=== PATIENT | female | born 1990 | race Two or more races ===

== ENCOUNTER 2024-12-18 18:48 | Inpatient (IN) | payer OTHER, SELFPAY ==
[2024-12-18 13:09] VITALS: BP 114/72
[2024-12-18] MEDS: OMNIPAQUE 50 ML PO (14:26)
[2024-12-18 14:35] LABS: % Basophils 0.3 % (0-2); % Eosinophils 1.9 % (0-6); % Immature Granulocytes 0.3 % (0-0.5); % Lymphocytes 25.2 % (20.5-51.1); % Neutrophils 65.3 % (42.2-75.2); Absolute Eosinophils 0.1 10^3/uL (0-0.7); Absolute Lymphocytes 1.6 10^3/uL (1.2-3.4); Absolute Monocytes 0.4 10^3/uL (0.1-0.6); Absolute Neutrophils 4.1 10^3/uL (1.4-6.5); Hematocrit 39.4 % (37.0-47.0); Hemoglobin 13.6 g/dL (12.0-16.0); Mean Corp Hgb Conc. 34.5 g/dL (33.0-37.0); Mean Corpuscular Hgb 30.1 pg (27.0-31.0); Mean Corpuscular Volume 87.2 fL (81.0-99.0); Mean Platelet Volume 9.7 fL (7.4-10.4); Nucleated Red Blood Cells % 0 %; Platelet Count 238 10^3/uL (130-400); Red Blood Cell Count 4.52 10^6/uL (4.20-5.40); White Blood Cell Count 6.3 10^3/uL (4.8-10.8)
[2024-12-18 14:37] LABS: HCG, Urine Qualitative Screen Negative
[2024-12-18 14:45] LABS: Urine Albumin Negative (Neg - Trace); Urine Bilirubin Negative (Negative); Urine Character Clear (Clear); Urine Color Yellow; Urine Glucose Negative (Negative); Urine Ketone Negative (Negative); Urine Leukocyte 1+ (Negative); Urine Nitrite Negative (Negative); Urine Occult Blood Negative (Negative); Urine Specific Gravity 1.005 (<1.030); Urine Urobilinogen Negative (Neg - 1+)
[2024-12-18 14:48] LABS: ALT (SGPT) 12 U/L (0-35); AST (SGOT) 17 U/L (14-36); Albumin 3.9 g/dl (3.5-5.0); Alkaline Phosphatase 57 U/L (38-126); Blood Urea Nitrogen 6 mg/dl (7-17); Calcium 9.4 mg/dl (8.4-10.2); Carbon Dioxide 24 mmol/L (22-30); Chloride 107 mmol/L (98-107); Glucose 102 mg/dl (70-99); Lipase 93 U/L (23-300); Potassium 4.2 mmol/L (3.5-5.1); Sodium 139 mmol/L (135-145); Total Bilirubin 0.7 mg/dl (0.2-1.3); Total Protein 6.7 g/dl (6.3-8.2); eGFR > 60.00
[2024-12-18 15:07] LABS: Urine Red Blood Cell None Seen /HPF (0-2)
--- NOTE | 2024-12-18 15:39 | ED.GENMED ---
History of Present Illness
General
Chief Complaint: Abdominal Symptoms
Time Seen by Provider: 12/18/24 13:21
History of Present Illness
History of Present Illness:
34-year-old female with history of Crohn's disease presenting for lower abdominal pain and vomiting. Patient reports that she was recently in [place] on vacation. 2 days ago she abruptly started to have vomiting. The vomiting improved, however she
then started to have lower abdominal cramping, which has been worsening. She feels it in the lower abdomen, particular right lower quadrant. Denies urinary complaints. Denies fever. Denies chest pain or difficulty breathing. Denies any history
of abdominal surgeries in the past. Denies additional acute medical complaints
Past History
Past History
ED Past Medical History: None
Social History
Tobacco: Non-smoker
Personal:
Phy Exam
Physical Exam
Physical Exam:
General: Well-appearing, no clinical signs of dehydration, nontoxic and in no acute distress
HEENT: protecting airway
Neck: appears supple
CV: Normal heart rate, regular rhythm
Resp: No accessory muscle use, no increased work of breathing, lungs clear to auscultation bilaterally
Abd: Soft and non-distended, focal tenderness to the right lower quadrant and suprapubic abdomen without rebound or guarding
Extremities: No deformities, no swelling, no erythema
Neuro: alert, no focal neurologic deficit
: deferred
Rectal: deferred
Psych: Normal affect
Skin: Intact
Course
Orders/Labs/Results
Orders:
Orders
12/18/24 13:36
Iohexol [Omnipaque] See Protocol PO NOW STA
12/18/24 13:37
CT Abd/pel W Iv And Oral Contr Urgent
Comment:
Reason For Exam: RLQ pain, r/o appe
Test Result ONCE
12/18/24 14:22
Complete Blood Count/With Diff Urgent
Comprehensive Metabolic Panel Urgent
Lipase Urgent
12/18/24 14:23
HCG, Urine Qualitative Screen Urgent
Date Specimen was Collected: 12/18/24
Time Specimen was Collected: 14:13
Urinalysis Reflex To Culture Urgent
Date Specimen was Collected: 12/18/24
Time Specimen was Collected: 14:13
Urine Microscopic Reflex Cult Urgent
Urine Culture Urgent
ALMA Source: U
Specimen Description:
Date Specimen was Collected: 12/18/24
Time Specimen was Collected: 14:13
12/18/24 17:19
CefTRIAXone [Rocephin] 1,000 mg IV NOW STA
MetroNIDAZOLE 500 MG/100 ML [Flagyl 500 mg] 100 ml IV NOW
Abnormal Lab Results
12/18/24 12/18/24
14:22 14:23
BUN 6 L mg/dl
(7-17)
Glucose 102 H mg/dl
(70-99)
Leukocyte Esterase Rfl 1+ A
(Negative)
12/18/24 14:22
12/18/24 14:22
Vital Signs
Initial and Last Documented VS:
Initial Vital Signs
Temp Pulse Resp BP Pulse Ox
98.5 F 65 16 114/72 100
12/18/24 13:09 12/18/24 13:09 12/18/24 13:09 12/18/24 13:09 12/18/24 13:09
Last Documented Vital Signs
Temp Pulse Resp BP Pulse Ox
98.5 F 65 16 114/72 100
12/18/24 13:09 12/18/24 13:09 12/18/24 13:09 12/18/24 13:09 12/18/24 13:09
MDM/Problems Addressed
MDM/Problems Addressed:
34-year-old female with history of Crohn's disease presenting for lower abdominal cramping and pain. Vital signs on arrival are normal.
On exam patient is resting comfortably, no acute distress. Symptoms appear most consistent with travelers infection, however patient is not having any diarrhea. Patient is focally tender to the right lower quadrant, so appendicitis is certainly
consideration. Given BMI, will have patient drink oral contrast and plan for CT abdominal imaging. Will also send laboratory analysis, urinalysis, urine preg
17:20 -patient CT shows acute uncomplicated appendicitis. Did message surgery. Surgery aware.
18:20 -General Surgery feels that it could be patient's Crohn's disease, holding surgery at this time, recommending hospitalist admission and GI consultation
*Critical Care Note
Total Time (30-74mins, 75-104mins- exclusive of procedures): Not Applicable
ED Attending Note
-
Portions of this chart may have been created with voice recognition software.� Occasional wrong word or��sound alike� substitutions may have occurred due to the inherent limitations of voice recognition software.
Discharge Plan
Departure
Patient Disposition: Admit
Date of Disposition: 12/18/24
Time of Disposition: 18:23
Presentation/result/management discussed w/ accepting MD/DO: Hospitalist
Condition: Good
Discharge Problem:
Acute appendicitis
Prescriptions:
No Action
PNV b#95-ferrous fumarate-FA [] 1 EACH tablet
1 ea PO DAILY
calcium carbonate 600 MG tablet
600 mg PO DAILY
acetaminophen 325 MG tablet
650 mg PO Q4HPRN PRN (Reason: mild pain) 0RF
sennosides-docusate sodium 1 TABLET tablet
1 tab PO DAILYPRN PRN (Reason: constipation) 0RF
ibuprofen 600 MG tablet
400 mg PO Q4HPRN PRN (Reason: moderate pain/cramps) 0RF
Referrals:
Bailey Cui MD [Family Provider] -
Discharge Date and Time
Print Language: MACEDONIAN
--- NOTE | 2024-12-18 18:53 | HPS.HSE ---
Family Physician
-
Family Physician: Bailey Cui MD
Chief Complaint
-
abdominal pain
History of Present Illness
34-year-old female past medical history of Crohn's disease in remission on Entyvio for a year, presenting with lower abdominal pain and vomiting. She was recently in [place] on vacation. 2 days ago she abruptly started having vomiting. Vomiting
improved but then she started having lower abdominal cramping which is gotten worse. Pain is in the right lower quadrant. Denies urinary complaints. Denies fever. Denies chest pain shortness of breath. Denies any prior abdominal surgeries.
Denies constipation or diarrhea. Denies blood in the stool.
Patient follows with Dr. Abreu at [facility] for [facility].
No family history of any GI problems.
Denies smoking or alcohol use.
Medical History
Past Medical History
Past Medical History: Reports Other (Crohn's disease)
Past Surgical History: Reports None
Social History
Tobacco: Non-smoker
Alcohol: None
Drug: None
Family History
Family History: Not pertinent
Allergies / Home Medications
Allergies reflects when Allergies were last updated in [employer].
Home Medications with original date entered in [employer]
Allergy/Medication List:
Allergies
Allergy/AdvReac Type Severity Reaction Status Date / Time
latex Allergy Itching Verified 12/18/24 13:11
Home Medications
ibuprofen 200 mg tablet 400 mg PO DAILYPRN PRN mild pain 12/18/24
vedolizumab 300 mg intravenous solution (Entyvio) 300 mg IV Q8W 12/18/24
Review of Systems
-
History Source: Patient
A 12 point ROS was completed and negative except as noted: Yes
Constitutional: Reports No Symptoms
EENT: Reports No Symptoms
Respiratory: Reports No Symptoms
Cardiac: Reports No Symptoms
Abdomen/GI: Reports See HPI
: Reports No Symptoms
Musculoskeletal: Reports No Symptoms
Skin: Reports No Symptoms
Neurological: Reports No Symptoms
Endocrine: Reports No Symptoms
Hematologic/Lymphatic: Reports No Symptoms
Psych: Reports No Symptoms
Physical Exam
Vital Signs
Vital Signs
Temp Pulse Resp BP Pulse Ox
98.5 F 65 16 114/72 100
12/18/24 13:09 12/18/24 13:09 12/18/24 13:09 12/18/24 13:09 12/18/24 13:09
Physical Exam
General: Well Developed, Well Nourished and No Apparent Distress
HEENT: NormoCephalic, Moist mucous membranes and Atraumatic
Respiratory: Clear
Cardiac: S1/S2 and Regular Rhythm; No Murmur or Rub
GI: Soft, Non Distended, Normal Bowel Sounds and Tender (RLQ ); No Organomegaly
Rectal: Deferred by Provider
Musculoskeletal: No Clubbing, No Cyanosis and No Edema
Skin: No Rash
Neuro: Nonfocal/grossly intact
Laboratory Results
-
12/18/24 14:22
12/18/24 14:22
Laboratory Results
Total Bilirubin 0.7 mg/dl (0.2-1.3) 12/18/24 14:22
AST 17 U/L (14-36) 12/18/24 14:22
ALT 12 U/L (0-35) 12/18/24 14:22
Alkaline Phosphatase 57 U/L (38-126) 12/18/24 14:22
Lipase 93 U/L (23-300) 12/18/24 14:22
Data Reviewed
-
Lab Data: Labs Reviewed by me
Old Records: Reviewed
Impression/Plan
-
IMPRESSION:
PLAN:
# Acute appendicitis
- CT abdomen pelvis shows distended appendix, mild adjacent surrounding inflammatory soft tissue stranding, incidental prominent submucosal fat deposition in cecum and proximal ascending colon which is nonspecific associated intraluminal narrowing
which may be associated with IBD
- Sips of liquids, n.p.o
- IV fluids
- Zosyn
- General Surgery consulted, recommending GI consult for consideration of Crohn's disease
- Discussed with GI who wants general surgery evaluation first
# Crohn's disease
-In remission for a year on Entyvio
- CT scan shows incidental prominent submucosal fat deposition in cecum and proximal ascending colon which is nonspecific associated intraluminal narrowing which corresponds to patient's known Crohn's disease
- General Surgery to evaluate first to see if GI consult necessary
Full code
DVT prophylaxis�SCDs
N.p.o. past midnight
[2024-12-18] MEDS: FLAGYL 500 MG 100 IV (19:05)
[2024-12-18] MEDS: ROCEPHIN 1000 MG IV (19:06)
[2024-12-18 20:35] VITALS: BMI 20.3
[2024-12-18] MEDS: NSS 1000 IV (20:35)
[2024-12-18 20:48] VITALS: BP 108/61
[2024-12-18] MEDS: ZOSYN 50 IV (21:25)
[2024-12-18] MEDS: TORADOL 10 MG IV (21:27)
[2024-12-18 23:42] VITALS: BP 92/43
--- NOTE | 2024-12-19 02:17 | PTCARENOTE ---
20:25 pt rec'vd from ER, pt aaox3 able to ambulate to scale, WNL parents accompanied pt to room and left shortly after. IVF samia, pt assessed and oriented to unit .
[2024-12-19] MEDS: ZOSYN 50 IV ×4 (04:03→22:31)
--- NOTE | 2024-12-19 06:06 | CON.GI ---
Consultation
-
Date/Time Consultation Requested: 12/18/2024, 1900
Date/Time Consultation Performed: 12/20/2023, 0600
Requesting Provider: Dr. Lin Blackmon
Performing Provider: Dr. Jose Colmenares
Reason for Consultation: Hx of Crohn's Disease, RLQ Abd pain, c/f Appendicitis
Medical History
Chief Complaint / HPI
Chief Complaint: RLQ Abd Pain
History of Present Illness:
Ms. Montes is a 34 y.o female with past medical history significant for Crohn's disease (dx 10/2023, on Entyvio last dose 11/2024) who reported to the ED with vomiting and right lower quadrant abdominal pain. CT imaging was concerning for acute
appendicitis along with submucosal fat deposition within the right colon. GI has been consulted for further evaluation and management.
Patient states her symptoms about two-three days ago on with nausea and vomiting. She recently was in [place] away for vacation and attributed her symptoms to a GI bug/illness. Denies any other sick contacts or other diarrhea / looser
stools. She additionally endorsed having night sweats along with chills but denies any fevers. Had multiple episodes of NBNB emesis without any other abdominal pain or epigastric discomfort. Eventually, her nausea/vomiting subsided but then started
to develop right lower quadrant abdominal pain which became progressively worse prompting her to come to the ED. Otherwise, she denies any other diarrhea, nocturnal bowel movements, rectal urgency, tenesmus, mucus or bloody stools. In regards to her
Crohn's disease, she follows with Dr. Michael Abreu at [facility] for her Crohn's disease. She reports being diagnosed around 10/2023 when she underwent both an EGD/Colonoscopy as she reports having significant upper abdominal discomfort,
post-prandial epigastric discomfort along with fatigue and irregular bowel habits but denies any chronic diarrhea. Unfortunately, have no records but reports her EGD was normal and her colonoscopy revealed inflammation in her colon. She was started
on Entyvio around 12/2024 with significant improvement with her last flare around the fall (one week of upper abd discomfort and fatigue). She has never had similar symptoms like this in the past and denies any symptoms that are typical for
her Crohn's disease. Denies any unintentional weight loss. Otherwise, she denies any other significant NSAIDs. Her last dose of Entyvio was on December 03 earlier this month and notes an upcoming colonoscopy in January of this year to reassess her
disease activity. She denies any other known complications from her Crohn's disease or other EIM.
In the ED, patient was afebrile and HD-stable without compensatory tachycardia. Labs were grossly unremarkable including normal CMP with albumin 3.9 and CBC without leukocytosis with WBC 6.[address] Abd/pelvis 12/18 revealed acute,
uncomplicated appendicitis w/out perforation or abscess along with incidental, nonspecific prominent submucosal fat deposition in the cecum and proximal AC with associated luminal narrowing. Patient received IVF, IV Zosyn and admitted to medicine
for further management.
Past Medical History
Past Medical History: Other (Colonic Crohn's disease)
Past Surgical History: None
Social History
Tobacco: Non-Smoker
Alcohol: None
Drug: None
Family History
Family History: Reviewed & Not Pertinent
Allergies / Home Medications
Allergy/AdvReac Type Severity Reaction Status Date / Time
latex Allergy Itching Verified 12/18/24 13:11
�Medication �Instructions �Recorded
ibuprofen 200 mg tablet 400 mg PO DAILYPRN PRN mild pain 12/18/24
vedolizumab 300 mg intravenous 300 mg IV Q8W 12/18/24
solution (Entyvio)
Review of Systems
-
All other systems: A 12 pt ROS was Negative except as stated above in HPI
Vital Signs
Temp Pulse Resp BP Pulse Ox
98.3 F 63 14 92/43 97
12/18/24 23:42 12/18/24 23:42 12/18/24 23:42 12/18/24 23:42 12/18/24 23:42
Physical Exam
Exam
General: Well Developed, Well Nourished, No Apparent Distress and Comfortable
HEENT: Normocephalic, Anicteric and Moist Mucous Membranes
Respiratory: Other (Normal WOB on room air)
GI: Soft, Non Distended and Tender (Mild to moderate TTP in RLQ w/out involuntary guarding or rebound tenderness)
Skin: Warm
Neuro: AO x 3
Psych: Calm
Results
WBC 6.3 10^3/uL (4.8-10.8) 12/18/24 14:22
Hgb 13.6 g/dL (12.0-16.0) 12/18/24 14:22
Hct 39.4 % (37.0-47.0) 12/18/24 14:22
MCV 87.2 fL (81.0-99.0) 12/18/24 14:22
Plt Count 238 10^3/uL (130-400) 12/18/24 14:22
Absolute Neuts (auto) 4.1 10^3/uL (1.4-6.5) 12/18/24 14:22
Sodium 139 mmol/L (135-145) 12/18/24 14:22
Potassium 4.2 mmol/L (3.5-5.1) 12/18/24 14:22
Chloride 107 mmol/L (98-107) 12/18/24 14:22
Carbon Dioxide 24 mmol/L (22-30) 12/18/24 14:22
BUN 6 mg/dl (7-17) L 12/18/24 14:22
Creatinine 0.7 mg/dL (0.6-1.0) 12/18/24 14:22
Calcium 9.4 mg/dl (8.4-10.2) 12/18/24 14:22
Total Bilirubin 0.7 mg/dl (0.2-1.3) 12/18/24 14:22
AST 17 U/L (14-36) 12/18/24 14:22
ALT 12 U/L (0-35) 12/18/24 14:22
Alkaline Phosphatase 57 U/L (38-126) 12/18/24 14:22
Lipase 93 U/L (23-300) 12/18/24 14:22
Diagnostic Image Results: As noted in HPI
Prior GI Procedures: Last EGD/Colon back on 10/2023, no records available for review
Assessment / Plan
-
Ms. Montes is a 34 y.o female with past medical history significant for ileocolonic Crohn's disease (dx 10/2023, on Entyvio last dose 11/2024) who reported to the ED with vomiting and right lower quadrant abdominal pain. CT imaging was concerning for
acute appendicitis along with submucosal fat deposition within the right colon. GI has been consulted for further evaluation and management.
#RLQ Abd Pain
#Nausea/Vomiting
#Chills #Night Sweats
#CT Imaging C/f Acute Appendicitis
#Hx of Ileocolonic Crohn's Disease (dx 10/2023, on Entyvio last dose 11/2024)
Impression: Patient presenting with nausea/vomiting along with chills and night sweats after recently traveling to [place] and progressive worsening right lower quadrant abdominal pain over the past 2-[address] imaging concerning for acute,
uncomplicated appendicitis. Additionally, there was incidental, nonspecific prominent submucosal fat deposition within the cecum and proximal ascending colon with associated luminal narrowing. Patient's medical history significant for ileocolonic
Crohn's disease which she reports has been fairly well-controlled on Entyvio (no records) and denies any recent flares. She denies any prior similar symptoms in the past and notes her usual Crohn's symptoms have usually been upper abdominal pain,
postprandial dyspepsia, fatigue, along with irregular bowel movements. She denies any symptoms that are in keeping with her usual Crohn's symptoms and specifically denies any bloody stools, diarrhea, nocturnal bowel habits, irregular BMs, rectal
urgency, tenesmus or other symptoms in keeping her CD. In regards to her submucosal fat deposition within her right colon, this can often be found in patients with IBD and does not necessarily indicate active inflammation rather than further
supporting chronic inflammation. I personally reviewed the CT imaging last evening and do not appreciate any significant colitis or ileitis upon review. Although her symptoms are atypical for classic appendicitis as she is without any fevers or
leukocytosis, she does endorse previous chills/night sweats and her appendix does appear to be inflamed and dilated on her CT imaging . Etiology of her symptoms seems most consistent with atypical appendicitis versus pseudo-appendicitis from an
infectious process (i.e. Yersinia) given her travel history versus her underlying IBD/Crohn's disease but again seems less likely given her history and her symptomatology. For now, I would continue IV antibiotic therapy along with trending her
inflammatory markers although this may be be confounded in the setting of her appendicitis. Would be prudent to also check stool studies to rule out any other infectious process as well given her recent travel to [place]. I would defer starting any
steroids at this time and agree with obtaining surgical consultation for further evaluation given her CT imaging concerning for appendicitis.
Recommendations:
- Keep NPO pending surgery evaluation
- Check stool studies- stool culture, Yersinia antigen testing, stool ova & parasites, C Diff
- Obtain CRP, trend q 48 hrs
- Continue IV antibiotics
- Would defer starting IV steroids at this time
- Recommend general surgery consult for further recommendations given concern for appendicitis
- Will obtain OSH medical records regarding her prior EGD/Colonoscopy and previous CT imaging which would be helpful for comparison
- I will reach out to her Pool Nurse as well (Dr. Michael Abreu) tomorrow on 12/20 as well
- Strict avoidance of all NSAIDs
- Chemical VTE ppx given patient's IBD hx while inpatient
- Rest of care per primary team
Discussed with patient and primary internal medicine team. GI team will continue to follow.
Data Reviewed
-
Radiology: Image Personally Visualized and interpreted and Report Reviewed by me
CT Scan: Image Personally Visualized and interpreted and Report Reviewed by me
Old Records: Requested and Reviewed
-
-
Thank you for consultation and allowing me to participate in the patient's care. Please call the associate professor of education GI physician during the after hours with any questions or concerns.
[2024-12-19 07:32] VITALS: BP 111/69
[2024-12-19] MEDS: NSS 1000 IV ×2 (07:51→19:37)
[2024-12-19 07:52] LABS: % Basophils 0.7 % (0-2); % Immature Granulocytes 0.3 % (0-0.5); % Lymphocytes 34.3 % (20.5-51.1); % Monocytes 8.3 % (1.7-9.3); % Neutrophils 52.4 % (42.2-75.2); Absolute Eosinophils 0.2 10^3/uL (0-0.7); Absolute Monocytes 0.5 10^3/uL (0.1-0.6); Absolute Neutrophils 3.1 10^3/uL (1.4-6.5); Hematocrit 34.2 % (37.0-47.0); Hemoglobin 11.5 g/dL (12.0-16.0); Mean Corp Hgb Conc. 33.6 g/dL (33.0-37.0); Mean Corpuscular Hgb 29.6 pg (27.0-31.0); Mean Corpuscular Volume 88.1 fL (81.0-99.0); Mean Platelet Volume 10.1 fL (7.4-10.4); Nucleated Red Blood Cells % 0 %; Platelet Count 211 10^3/uL (130-400); Red Blood Cell Count 3.88 10^6/uL (4.20-5.40); Red Cell Dist. Width 12.9 % (11.5-14.5); White Blood Cell Count 5.8 10^3/uL (4.8-10.8)
[2024-12-19] MEDS: TORADOL 10 MG IV (07:54)
[2024-12-19 08:07] LABS: ALT (SGPT) < 10 U/L (0-35); AST (SGOT) 15 U/L (14-36); Albumin 3.5 g/dl (3.5-5.0); Alkaline Phosphatase 55 U/L (38-126); Blood Urea Nitrogen 7 mg/dl (7-17); Calcium 8.6 mg/dl (8.4-10.2); Carbon Dioxide 22 mmol/L (22-30); Chloride 110 mmol/L (98-107); Estimated Creatinine Clearance 88 ml/min; Glucose 95 mg/dl (70-99); Potassium 4.2 mmol/L (3.5-5.1); Sodium 141 mmol/L (135-145); Total Bilirubin 0.8 mg/dl (0.2-1.3); Total Protein 5.8 g/dl (6.3-8.2); eGFR > 60.00
--- NOTE | 2024-12-19 08:56 | W.PN.HOSP.TC ---
Today's Communication/Plan
-
see plan
Assessment / Plan
Assessment / Plan
CT A/P
IMPRESSION:
Acute appendicitis. No perforation or abscess.
Incidental prominent submucosal fat deposition in the cecum and proximal ascending colon, which is nonspecific. This appears to be associated with luminal narrowing. Such findings may be associated with inflammatory bowel disease in the proper
clinical setting.
Fibroid uterus.
# Acute appendicitis
- CT abdomen pelvis shows distended appendix with surrounding inflammatory soft tissue stranding; also shows prominent submucosal fat deposition in setting of known Crohn's
- Sips of liquids, n.p.o
- IV fluids
- Zosyn
- appreciate surgery and GI evals - follow up further recommendations
- Dr. Larose will update patient's [facility] Expert, Dr. Abreu
Full code
DVT prophylaxis�SCDs (start pharm if no plans for surgery)
Anticipated Discharge: 24 - 48 hours
Subjective/Interval History
-
Date of Service: December 19, 2024
continues to have RLQ pain
Objective Data
-
Labs:
Laboratory Results
12/19/24
05:56
WBC 5.8
Hgb 11.5 L
Hct 34.2 L
Plt Count 211
Sodium 141
Potassium 4.2
Chloride 110 H
Carbon Dioxide 22
BUN 7
Creatinine 0.8
Glucose 95
Calcium 8.6
Total Bilirubin 0.8
AST 15
ALT < 10
Alkaline Phosphatase 55
Vital Signs:
Vital Signs
Temp Pulse Resp BP Pulse Ox
97.9 F 65 16 111/69 99
12/19/24 07:32 12/19/24 07:32 12/19/24 07:32 12/19/24 07:32 12/19/24 07:32
I&O
12/18/24 12/19/24 12/20/24
06:59 06:59 06:59
Intake Total 0 / 0
Balance 0 / 0
Review of Systems
-
History Source: Patient
All other systems: Reviewed and negative
Physical Exam
-
General: No Apparent Distress
HEENT: PERRLA
Respiratory: Clear to Auscultation; Negative Wheezes
Cardiac: Regular Rhythm and S1/S2
GI: Other (tenderness RLQ )
Musculoskeletal: No Edema
Skin: Warm and Dry; Negative Rash
Neuro: AO x 3
Psych: Calm
Data Reviewed
-
Diagnostic Radiology: Report Reviewed by me
Labs: Labs Reviewed by me
--- NOTE | 2024-12-19 10:10 | CM ---
Reviewed the chart notes and spoke with the patient at the bedside. Patient resides with her spouse in a two story home with two steps to enter. The patient reports no DME or SNF in the past, but did have VN. Agency name unknown. The patient
confirmed her pharmacy of choice is [facility]. CM continues to be available to patient/family and is monitoring medical plan for needs at discharge.
Plan: Discharge plans will depend on the patient's progress.
--- NOTE | 2024-12-19 11:01 | CON.GS ---
Consultation
-
Date/Time Consultation Performed: 12/19/24 0923
Medical History
-
Chief Complaint: RLQ pain
History of Present Illness:
Ms Montes is a 34 yo female with a h/o Crohn's disease on Entyvio therapy who recently returned from a vacation in [place] and presents with RLQ pain for the past 2-3 days with associated loss of appetite. She had one episode of vomiting at date of
onset but denies nausea or vomiting since. She denies new symptoms of diarrhea. She denies fevers or chills. On exam, her abdomen is soft, non-distended with mild to moderate tenderness to the RLQ.
Past Medical History
Past Medical History: Other (Crohn's disease on biologic)
Past Surgical History: None
Social History
Tobacco: Non-Smoker
Alcohol: None
Personal:
Living: With Family
Employment: Employed
Family History
Family History: Reviewed & Not Pertinent
Allergies / Home Medications
Allergy/AdvReac Type Severity Reaction Status Date / Time
latex Allergy Itching Verified 12/18/24 13:11
�Medication �Instructions �Recorded �Confirmed �Type
ibuprofen 200 mg tablet 400 mg PO DAILYPRN PRN mild pain 12/18/24 12/18/24 History
vedolizumab 300 mg intravenous 300 mg IV Q8W Gastrointestinal 12/18/24 12/19/24 History
solution (Entyvio) Agent,
Review of Systems
-
History Source: Patient and Family
All other systems: Negative unless noted
A 10 point review of systems was completed, and was negative except as per HPI.
Physical Exam
Vital Signs
Temp Pulse Resp BP Pulse Ox
97.9 F 65 16 111/69 99
12/19/24 07:32 12/19/24 07:32 12/19/24 07:32 12/19/24 07:32 12/19/24 07:32
12/18/24 12/19/24 12/20/24
06:59 06:59 06:59
Actual Weight 56.897 kg
Body Mass Index (BMI) 20.3
Lab Results
12/19/24 05:56
12/19/24 05:56
WBC 5.8 10^3/uL (4.8-10.8) 12/19/24 05:56
Hgb 11.5 g/dL (12.0-16.0) L 12/19/24 05:56
Hct 34.2 % (37.0-47.0) L 12/19/24 05:56
Plt Count 211 10^3/uL (130-400) 12/19/24 05:56
Abs Immat Gran (auto) 0.0 10^3/uL (0-0.05) 12/19/24 05:56
Neutrophils % 52.4 % (42.2-75.2) 12/19/24 05:56
Physical Exam
General: Well Developed and Well Nourished
HEENT: Moist Mucous Membranes
Respiratory: Non Labored Respirations
GI: Soft, Non Distended and Tender (rlq)
Neuro: Awake, Alert and AO x 3
Psych: Calm
Data Reviewed
-
CT Scan: Image Personally Visualized and interpreted, Report Reviewed by me, Discussed with Physician, Discussed with Patient and Discussed with Family
Labs: Labs Reviewed by me, Discussed with Physician, Discussed with Patient and Discussed with Family
Old Records: Reviewed
Assessment / Plan
-
34 yo female with a h/o Crohn's disease presenting with 2-3 days of RLQ pain beginning as she was travelling back to the [place] from [place]. CT imaging reviewed with inflammatory changes noted to the TI/Cecum in keeping with her history of IBD with
distention of the appendix, no perforation or appendicolith visualized but with some adjacent/surrounding inflammatory soft tissue stranding. Possible appendicitis vs Crohn's flare. Afebrile with normal WBC. Reviewed operative options which would
include appendectomy with high likelihood of also needing ileocecectomy as well if surgery were to be pursued given Crohn's history and surrounding inflammation noted on CT vs medical management with antibiotics, bowel rest and IBD management.
Patient opting for medical management at this time.
Gastroenterology following as well and case discussed with Dr. Colmenares as well as Dr. Rubin patient's hospitalist.
--Ok for clears for comfort
--Continue ABX
--Trend labs/exams
--Analgesics prn
--Will obtain records from her IBD specialist Dr. Abreu tomorrow
--- NOTE | 2024-12-19 12:18 | W.PN.UPDATE ---
Update Note
Progress Note Update
Given no surgery today, will order one dose of Lovenox subQ for DVT PPx (patient higher risk with hx IBD). Further dosing to be re-assessed tomorrow.
[2024-12-19 14:02] VITALS: BP 114/61
[2024-12-19 23:25] VITALS: BP 112/63
[2024-12-20] MEDS: ZOSYN 50 IV ×3 (04:39→15:42)
--- NOTE | 2024-12-20 05:53 | W.PN.GI.CBS2 ---
Today's Communication / Plan
-
Improving on IV abx, may ADAT to low-fiber, low-residue as tolerated. Favor ongoing monitoring for additional 24 hrs while on solids. CRS following, no plans for surgery at this time. See rest of care as outlined below.
Assessment / Plan
-
Ms. Montes is a 34 y.o female with past medical history significant for ileocolonic Crohn's disease (dx 10/2023, on Entyvio last dose 11/2024) who reported to the ED with vomiting and right lower quadrant abdominal pain. CT imaging was concerning for
acute appendicitis along with submucosal fat deposition within the right colon. GI has been consulted for further evaluation and management.
#RLQ Abd Pain
#Nausea/Vomiting
#Chills #Night Sweats
#CT Imaging C/f Acute Appendicitis
#Hx of Ileocolonic Crohn's Disease (dx 10/2023, on Entyvio last dose 11/2024)
Impression: Patient presenting with nausea/vomiting along with chills and night sweats after recently traveling to [place] and progressive worsening right lower quadrant abdominal pain over the past 2-[address] imaging concerning for acute,
uncomplicated appendicitis. Additionally, there was incidental, nonspecific prominent submucosal fat deposition within the cecum and proximal ascending colon with associated luminal narrowing. Patient's medical history significant for ileocolonic
Crohn's disease which she reports has been fairly well-controlled on Entyvio (no records) and denies any recent flares. She denies any prior similar symptoms in the past and notes her usual Crohn's symptoms have usually been upper abdominal pain,
postprandial dyspepsia, fatigue, along with irregular bowel movements. She denies any symptoms that are in keeping with her usual Crohn's symptoms and specifically denies any bloody stools, diarrhea, nocturnal bowel habits, irregular BMs, rectal
urgency, tenesmus or other symptoms in keeping her CD. In regards to her submucosal fat deposition within her right colon, this can often be found in patients with IBD and does not necessarily indicate active inflammation rather than further
supporting chronic inflammation. I personally reviewed the CT imaging last evening and do not appreciate any significant colitis or ileitis upon review. Although her symptoms are atypical for classic appendicitis as she is without any fevers or
leukocytosis, she does endorse previous chills/night sweats and her appendix does appear to be inflamed and dilated on her CT imaging . Etiology of her symptoms seems most consistent with atypical appendicitis versus pseudo-appendicitis from an
infectious process (i.e. Yersinia) given her travel history versus her underlying IBD/Crohn's disease but again seems less likely given her history and her symptomatology. For now, I would continue IV antibiotic therapy along with trending her
inflammatory markers although this may be be confounded in the setting of her appendicitis. Would be prudent to also check stool studies to rule out any other infectious process as well given her recent travel to [place]. I would defer starting any
steroids at this time and agree with obtaining surgical consultation for further evaluation given her CT imaging concerning for appendicitis.
Cryptosporidium/giardia antigen stool testing (-), C Diff toxin (-), pending stool culture and Yersinia
Recommendations:
- Tolerating CLD, may advance to low-fiber, low-residue diet as tolerated if no plans for surgery
- Follow-up rest of stool studies including Yersinia
- CRP pending, trend q 48 hrs
- Continue IV Zosyn while inpatient
- Would still defer starting IV steroids at this time as without any symptoms to suggest active CD or flare of her Crohn's
- Surgery following, no plans for surgery at this time as patient hesitant to proceed with surgery given her Crohn's disease and c/f possible ileocolic resection in discussion with CRS
- Pending review of OSH medical records regarding her prior EGD/Colonoscopy and previous CT imaging which would be helpful for comparison
- Will attempt to reach out to her primary Leather Case Finisher as well (Dr. Michael Abreu)
- Strict avoidance of all NSAIDs
- Chemical VTE ppx given patient's IBD hx while inpatient
- Rest of care per primary team
Discussed with patient and CRS, Dr. Otero, this AM. GI team will continue to follow.
Subjective
Subjective
Date of Service: December 20, 2024
- No acute events overnight, remains afebrile
- Stool cultures pending
Feeling well, reports improving RLQ abdominal pain. Denies any fevers, chills or night sweats. Tolerated CLD without any difficulty. No nausea or vomiting. Does note mild menstrual cramps secondary to her menstrual cycle.
Objective
Data Reviewed
Laboratory Data:
Laboratory Results
Total Bilirubin 0.8 mg/dl (0.2-1.3) 12/19/24 05:56
AST 15 U/L (14-36) 12/19/24 05:56
ALT < 10 U/L (0-35) 12/19/24 05:56
Alkaline Phosphatase 55 U/L (38-126) 12/19/24 05:56
Lipase 93 U/L (23-300) 12/18/24 14:22
Vital Signs and I&O:
Vital Signs
Temp Pulse Resp BP Pulse Ox
99.1 F 65 16 112/63 99
12/19/24 23:25 12/19/24 23:25 12/19/24 23:25 12/19/24 23:25 12/19/24 23:25
I&O
12/18/24 12/19/24 12/20/24
06:59 06:59 06:59
Intake Total 0 / 0 500 / 500
Balance 0 / 0 500 / 500
Physical Exam
Physical Exam
HEENT: Anicteric and Moist mucous membranes
Pulmonary: Clear
GI: Soft, Non Distended and Tender (Mild TTP in RLQ, no rebound tenderness or involuntary guarding)
Extremities: No Edema
Neuro: Non Focal
[2024-12-20] MEDS: NSS 1000 IV (06:04)
[2024-12-20 07:14] LABS: Hematocrit 33.2 % (37.0-47.0); Hemoglobin 11.2 g/dL (12.0-16.0); Mean Corp Hgb Conc. 33.7 g/dL (33.0-37.0); Mean Corpuscular Hgb 29.5 pg (27.0-31.0); Mean Corpuscular Volume 87.4 fL (81.0-99.0); Platelet Count 203 10^3/uL (130-400); Red Cell Dist. Width 12.8 % (11.5-14.5); White Blood Cell Count 4.2 10^3/uL (4.8-10.8)
[2024-12-20 07:25] VITALS: BP 119/68
[2024-12-20 07:31] LABS: Blood Urea Nitrogen 5 mg/dl (7-17); Calcium 8.4 mg/dl (8.4-10.2); Carbon Dioxide 22 mmol/L (22-30); Chloride 109 mmol/L (98-107); Estimated Creatinine Clearance 88 ml/min; Glucose 97 mg/dl (70-99); Sodium 139 mmol/L (135-145); eGFR > 60.00
--- NOTE | 2024-12-20 09:09 | W.PN.CRS1 ---
Today's Communication / Plan
-
no plans for surgery
low residue diet
Assessment/Plan
-
34 yo female with a h/o Crohn's disease presenting with 2-3 days of RLQ pain beginning as she was travelling back to the from [place]. CT imaging reviewed with inflammatory changes noted to the TI/Cecum in keeping with her history of IBD with
distention of the appendix, no perforation or appendicolith visualized but with some adjacent/surrounding inflammatory soft tissue stranding. Possible appendicitis vs Crohn's flare. Afebrile with normal WBC. Reviewed operative options which would
include appendectomy with high likelihood of also needing ileocecectomy as well if surgery were to be pursued given Crohn's history and surrounding inflammation noted on CT vs medical management with antibiotics, bowel rest and IBD management.
Patient opting for medical management at this time.
--Advanced to low residue diet. Monitor for 24 hours per GI.
--Continue ABX
--Trend labs/exams
--Analgesics prn
--No plans for surgery at this time
--D/C per primary team
Subjective Data
Subjective Data
Date of Service: December 20, 2024
Patient is feeling better today. She is still opting for medical management. She has no nausea or vomiting. She had a bowel movement yesterday.
Objective Data
-
Vital Signs
Temp Pulse Resp BP Pulse Ox
98.1 F 60 16 119/68 98
12/20/24 07:25 12/20/24 07:25 12/20/24 07:25 12/20/24 07:25 12/20/24 07:25
Intake & Output
12/19/24 12/20/24 12/21/24
06:59 06:59 06:59
Intake Total 0 / 0 980 / 980
Balance 0 / 0 980 / 980
Intake:
Oral fluids 0 / 0 980 / 980
Other:
Number of approximated MODERATE 2 2
amounts of urine
Lab Results
12/20/24 06:22
12/20/24 06:22
Physical Exam
-
General: No Acute Distress and AOx3
Abdomen: Soft, Non Distended and Tender (RLQ - mild)
Skin: Warm and Dry
--- NOTE | 2024-12-20 09:22 | CM ---
Reviewed the chart notes. Diet advanced to low residue. No plans for surgery. Medical management. CM continues to be available to patient/family and is monitoring medical plan for needs at discharge.
Plan: Discharge to home when medically stable. No anticipated needs identified at this time.
--- NOTE | 2024-12-20 13:17 | W.PN.HOSP.TC ---
Addendum entered and electronically signed by Sage Esteves MD 12/21/24 16:47:
[id number]
Original Note:
Today's Communication/Plan
-
DC on augmentin for additional 10 days
F/u CBC in 1 week
Fi/ GI, CRS outpt
Assessment / Plan
Assessment / Plan
CT A/P
IMPRESSION:
Acute appendicitis. No perforation or abscess.
Incidental prominent submucosal fat deposition in the cecum and proximal ascending colon, which is nonspecific. This appears to be associated with luminal narrowing. Such findings may be associated with inflammatory bowel disease in the proper
clinical setting.
Fibroid uterus.
# Acute appendicitis
- CT abdomen pelvis shows distended appendix with surrounding inflammatory soft tissue stranding; also shows prominent submucosal fat deposition in setting of known Crohn's
- At this time, patient opting for conservative management v surgery due to risk of ileocecectomy. Please see CRS note for further details on conversation/differentials/decisions .
- Adv to LRD and if tolerating today, can be dced; confirmed with GI
- Augmentin upon DC for additional 10 days
- F/u closely with GI outpatient
-S/p IVF and zosyn
- appreciate surgery and GI evals
Full code
DVT prophylaxis�SCDs (start pharm if no plans for surgery)
More than 30 minutes spent in discharge including
Final examination of the patient
Summarizing hospital stay
Instructions for continuing care to all relevant caregivers
Preparation of discharge records, prescriptions, and referral forms
Total time spent (in minutes): 37
Anticipated Discharge: Today
Subjective/Interval History
-
Date of Service: December 20, 2024
no acute events, tolerating LRD this am
Objective Data
-
Labs:
Laboratory Results
12/20/24
06:22
WBC 4.2 L
Hgb 11.2 L
Hct 33.2 L
Plt Count 203
Sodium 139
Potassium 4.0
Chloride 109 H
Carbon Dioxide 22
BUN 5 L
Creatinine 0.8
Glucose 97
Calcium 8.4
Vital Signs:
Vital Signs
Temp Pulse Resp BP Pulse Ox
98.1 F 60 16 119/68 98
12/20/24 07:25 12/20/24 07:25 12/20/24 07:25 12/20/24 07:25 12/20/24 07:25
I&O
12/19/24 12/20/24 12/21/24
06:59 06:59 06:59
Intake Total 0 / 0 980 / 980
Balance 0 / 0 980 / 980
Review of Systems
-
History Source: Patient
All other systems: Not reviewed unless documented
Physical Exam
-
General: No Apparent Distress
HEENT: PERRLA
Respiratory: Clear to Auscultation; Negative Wheezes
Cardiac: Regular Rhythm and S1/S2
GI: Nontender
Musculoskeletal: No Edema
Skin: Warm and Dry; Negative Rash
Neuro: AO x 3
Psych: Calm
Data Reviewed
-
CT Scan: Report Reviewed by me
Labs: Labs Reviewed by me
--- NOTE | 2024-12-20 13:23 | W.DS.TRANS ---
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
-
Discharge Instructions:
Discharge Diagnosis/Procedures Possible appendicitis
Diet Low Fiber
Activity As tolerated
Blood Work cbc in 1 week with pcp
Others Tests as per GI outpatient
Instructions:
Stand-Alone Forms:
Changes to Home Medications: Yes
Discharge Medications:
DC Medications w/original date entered in [facility]
ibuprofen 200 mg tablet 400 mg PO DAILYPRN PRN mild pain 12/18/24
vedolizumab 300 mg intravenous solution (Entyvio) 300 mg IV Q8W Gastrointestinal Agent, 12/18/24
amoxicillin 875 mg-potassium clavulanate 125 mg tablet 1 tab PO Q12H 10 days #20 tabs 12/20/24
Home Medication Changes
amoxicillin 875 mg-potassium clavulanate 125 mg tablet 1 tab PO Q12H 10 days #20 tabs 12/20/24
Pending Results: No
--- NOTE | 2024-12-20 15:51 | PTCARENOTE ---
Patient has no c/o nausea or vomiting. Patient tolerated low residue/low fiber diet. Patient did c/o abdominal cramp after eating and had a loose BM.
--- NOTE | 2024-12-20 15:54 | W.PN.UPDATE ---
Update Note
Progress Note Update
Brief GI Note:
Spoke with patient's primary digitizer operator, Dr. Michael Abreu, and reviewed patient's clinical course and current plan for discharge this afternoon. He agrees with current recommendations and likely acute appendicitis rather than Crohn's
disease. Agrees with holding off on steroids and ongoing treatment with antibiotics with Augmentin. I personally discussed with the patient as well after I spoke with her primary digitizer operator. Reviewed ED return precautions along with very
close outpatient follow-up with her primary digitizer operator.
[2024-12-20] MEDS: NSS IV (16:16)
[2024-12-20 17:08] VITALS: BP 110/70
== END 2024-12-20 17:10 | disposition home or self-care (01) | DRG 394 ==
LOC: 2 SOUTH 18:48
PROVIDERS: Registered Nurse; ADMITTING PHYSICIAN Hospitalist; ATTENDING PHYSICIAN Internal Medicine; CONSULT PHYSICIAN Student in an Organized Health Care Education/Training Program; CONSULT PHYSICIAN Surgery; EMERGENCY PHYSICIAN Student in an Organized Health Care Education/Training Program; FAMILY PHYSICIAN Family Medicine
DX: K35.80 Unspecified acute appendicitis (principal); K50.00 Crohn's disease of small intestine without complications; Z91.040 Latex allergy status
CPT/HCPCS: 74177; 80048; 80053; 81003; 81015; 81025; 83690; 85025; 85027; 86140; 87045; 87046; 87086; 87324; 87328; 87329; 87427; 87449; 96365; 96375; 99284; Q9967

== ENCOUNTER 2025-08-09 17:21 | Inpatient (IN) | payer OTHER, SELFPAY ==
[2025-08-09] VITALS (7 sets, daily range): BP systolic 96–109; BP diastolic 58–72; BMI 21.7; BMI 21.8
[2025-08-09 12:33] LABS: Hematocrit 45.1 % (37.0-47.0); Hemoglobin 15.3 g/dL (12.0-16.0); Mean Corp Hgb Conc. 33.9 g/dL (33.0-37.0); Mean Corpuscular Volume 87.2 fL (81.0-99.0); Nucleated Red Blood Cells % 0 %; Platelet Count 235 10^3/uL (130-400); Red Cell Dist. Width 13.3 % (11.5-14.5)
[2025-08-09] MEDS: DILAUDID 0.5 MG IV ×4 (12:35→22:57)
[2025-08-09] MEDS: NSS 1000 IV ×3 (12:35→20:57)
[2025-08-09] MEDS: OMNIPAQUE 50 ML PO (12:36)
[2025-08-09] MEDS: ZOFRAN 4 MG IV (12:36)
[2025-08-09 12:51] LABS: HCG, Serum Qualitative Screen Negative
[2025-08-09 12:54] LABS: ALT (SGPT) 15 U/L (0-35); AST (SGOT) 19 U/L (14-36); Albumin 4.6 g/dl (3.5-5.0); Alkaline Phosphatase 55 U/L (38-126); Blood Urea Nitrogen 9 mg/dl (7-17); Calcium 9.6 mg/dl (8.4-10.2); Carbon Dioxide 25 mmol/L (22-30); Chloride 103 mmol/L (98-107); Estimated Creatinine Clearance 96 ml/min; Glucose 106 mg/dl (70-99); Lipase 90 U/L (23-300); Potassium 4.7 mmol/L (3.5-5.1); Sodium 134 mmol/L (135-145); Total Protein 7.6 g/dl (6.3-8.2); eGFR > 60.00
[2025-08-09 15:43] LABS: Urine Character Clear (Clear)
--- NOTE | 2025-08-09 16:23 | ED.GENMED ---
History of Present Illness
<Parish Ruelas DO - Last Filed: 08/09/25 16:30>
General
Chief Complaint: Abdominal Pain
Time Seen by Provider: 08/09/25 11:56
<Janine Hurtado PA-C - Last Filed: 08/09/25 18:24>
History of Present Illness
History of Present Illness:
see MDM
Past History
<Parish Ruelas DO - Last Filed: 08/09/25 16:30>
Past History
ED Past Medical History: None
Social History
Tobacco: Non-smoker
Personal:
Phy Exam
<Janine Hurtado PA-C - Last Filed: 08/09/25 18:24>
Physical Exam
Physical Exam:
see MDM
Course
<Parish Ruelas DO - Last Filed: 08/09/25 16:30>
Orders/Labs/Results
Orders:
Orders
08/09/25 12:07
Calprotectin, Fecal [S] Urgent
STOOL [C difficile Antigen & Toxins] Urgent
ALMA Source: Feces/Stool
Specimen Description:
Stool Culture Urgent
ALMA Source: Feces/Stool
Specimen Description:
0.9% Sodium Chloride 1000 ml [Nss] 1,000 ml IV BOLUS
HYDROmorphone [Dilaudid] 0.5 mg IV NOW STA
Iohexol [Omnipaque] See Protocol PO NOW STA
Ondansetron Injectable [Zofran] 4 mg IV NOW STA
08/09/25 12:08
CT Abd/pel W Iv And Oral Contr Urgent
Comment:
Reason For Exam: RLQ pain, h/o appendicitis no surg; crohns
Test Result ONCE
08/09/25 12:20
Complete Blood Count/With Diff Urgent
Comprehensive Metabolic Panel Urgent
HCG, Serum Qualitative Screen Urgent
Lactic Acid Urgent
Lipase Urgent
08/09/25 15:26
HYDROmorphone [Dilaudid] 0.5 mg IV NOW STA
08/09/25 15:33
Urinalysis Reflex To Culture Urgent
Date Specimen was Collected: 08/09/25
Time Specimen was Collected: 15:30
08/09/25 16:30
0.9% Sodium Chloride 1000 ml [Nss] 1,000 ml IV BOLUS
Piperacillin/Tazo 3.375 Gram [Zosyn] 3.375 gram in 50 ml IV NOW
08/09/25 16:59
Admit/Transfer Patient As Directed
Co-Sign Provider:
Level of Care: Inpatient admission
Assign to:: Medical/Surgical
Physician / Group: raman lao
Diagnosis: acute appendicitis
Reason for Hospitalization: acute appendicitis
Expected length of stay greater than two midnights?: Yes
ELOS- Estimated Length of Stay in days: 3
I certify the patient meets the requirements for IP care: Yes
PRN Pain Medication Management As Directed
May give lesser potent ordered pain med per pt: Yes
preference::
Protocol:: Medication orders for pain may be administered in a
manner that supports deferring to patient preference
when the pt is:
- Requesting an ordered lesser potent pain medication.
Least to most potent pain medications are defined
as: acetaminophen < NSAID < tramadol < opioids
(morphine, oxycodone, hydromorphone).
- Requesting a lesser dose of the same medication IF
ORDERED.
- Requesting a less intrusive route of administration
if both routes are prescribed by the provider (PO <
IV).
08/09/25 17:00
Code Status As Directed
Resuscitation Status: Full Code
08/09/25 17:02
EKG [Electrocardiogram (*1)] Stat
Reason for Study: QTc Monitoring
Abnormal Lab Results
08/09/25 08/09/25
12:20 15:33
Absolute Lymphs (auto) 0.8 L 10^3/uL
(1.2-3.4)
Neutrophils % 79.3 H %
(42.2-75.2)
Lymphocytes % 12.9 L %
(20.5-51.1)
Sodium 134 L mmol/L
(135-145)
Glucose 106 H mg/dl
(70-99)
Urine Ketones 3+ A
(Negative)
08/09/25 12:20
08/09/25 12:20
Vital Signs
Initial and Last Documented VS:
Initial Vital Signs
Temp Pulse Resp BP Pulse Ox
36.3 C 83 18 104/72 100
08/09/25 10:53 08/09/25 10:53 08/09/25 10:53 08/09/25 10:53 08/09/25 10:53
Last Documented Vital Signs
Temp Pulse Resp BP Pulse Ox
36.3 C 69 18 109/58 97
08/09/25 10:53 08/09/25 15:49 08/09/25 15:49 08/09/25 15:49 08/09/25 16:24
<Janine Hurtado PA-C - Last Filed: 08/09/25 18:24>
Orders/Labs/Results
Orders:
Orders
08/09/25 12:07
Calprotectin, Fecal [S] Urgent
STOOL [C difficile Antigen & Toxins] Urgent
ALMA Source: Feces/Stool
Specimen Description:
Stool Culture Urgent
ALMA Source: Feces/Stool
Specimen Description:
0.9% Sodium Chloride 1000 ml [Nss] 1,000 ml IV BOLUS
HYDROmorphone [Dilaudid] 0.5 mg IV NOW STA
Iohexol [Omnipaque] See Protocol PO NOW STA
Ondansetron Injectable [Zofran] 4 mg IV NOW STA
08/09/25 12:08
CT Abd/pel W Iv And Oral Contr Urgent
Comment:
Reason For Exam: RLQ pain, h/o appendicitis no surg; crohns
Test Result ONCE
08/09/25 12:20
Complete Blood Count/With Diff Urgent
Comprehensive Metabolic Panel Urgent
HCG, Serum Qualitative Screen Urgent
Lactic Acid Urgent
Lipase Urgent
08/09/25 15:26
HYDROmorphone [Dilaudid] 0.5 mg IV NOW STA
08/09/25 15:33
Urinalysis Reflex To Culture Urgent
Date Specimen was Collected: 08/09/25
Time Specimen was Collected: 15:30
08/09/25 16:30
0.9% Sodium Chloride 1000 ml [Nss] 1,000 ml IV BOLUS
Piperacillin/Tazo 3.375 Gram [Zosyn] 3.375 gram in 50 ml IV NOW
08/09/25 16:59
Admit/Transfer Patient As Directed
Co-Sign Provider:
Level of Care: Inpatient admission
Assign to:: Medical/Surgical
Physician / Group: raman lao
Diagnosis: acute appendicitis
Reason for Hospitalization: acute appendicitis
Expected length of stay greater than two midnights?: Yes
ELOS- Estimated Length of Stay in days: 3
I certify the patient meets the requirements for IP care: Yes
PRN Pain Medication Management As Directed
May give lesser potent ordered pain med per pt: Yes
preference::
Protocol:: Medication orders for pain may be administered in a
manner that supports deferring to patient preference
when the pt is:
- Requesting an ordered lesser potent pain medication.
Least to most potent pain medications are defined
as: acetaminophen < NSAID < tramadol < opioids
(morphine, oxycodone, hydromorphone).
- Requesting a lesser dose of the same medication IF
ORDERED.
- Requesting a less intrusive route of administration
if both routes are prescribed by the provider (PO <
IV).
08/09/25 17:00
Code Status As Directed
Resuscitation Status: Full Code
08/09/25 17:02
EKG [Electrocardiogram (*1)] Stat
Reason for Study: QTc Monitoring
Abnormal Lab Results
08/09/25 08/09/25
12:20 15:33
Absolute Lymphs (auto) 0.8 L 10^3/uL
(1.2-3.4)
Neutrophils % 79.3 H %
(42.2-75.2)
Lymphocytes % 12.9 L %
(20.5-51.1)
Sodium 134 L mmol/L
(135-145)
Glucose 106 H mg/dl
(70-99)
Urine Ketones 3+ A
(Negative)
08/09/25 12:20
08/09/25 12:20
Vital Signs
Initial and Last Documented VS:
Initial Vital Signs
Temp Pulse Resp BP Pulse Ox
36.3 C 83 18 104/72 100
08/09/25 10:53 08/09/25 10:53 08/09/25 10:53 08/09/25 10:53 08/09/25 10:53
Last Documented Vital Signs
Temp Pulse Resp BP Pulse Ox
36.3 C 69 18 109/58 97
08/09/25 10:53 08/09/25 15:49 08/09/25 15:49 08/09/25 15:49 08/09/25 16:24
<Janine Hurtado PA-C - Last Filed: 08/09/25 18:24>
MDM/Problems Addressed
Differential Diagnosis Includes:
see MDM
MDM/Problems Addressed:
Note:
CHIEF COMPLAINT(S)
Abdominal pain, nausea, and cramping.
HISTORY OF PRESENT ILLNESS
The patient is a 35-year-old female with a known history of Crohns disease on [facility] (GI is from [facility]), presenting with abdominal pain, nausea, and cramping, which started after returning from travel to the [facility]. Symptoms began 2 days
ago, coincident with her return flight, and have progressively worsened. Despite taking two doses of loperamide the previous night for relief, she continues to experience significant discomfort and cramping. The patient denies current diarrhea but
reports a reduced appetite. Additionally, she describes the abdominal discomfort as 'pressure.' The patient denies fever as per the initial assessment but reports episodes of chills and shaking. She has recently experienced a fish consumption
incident that she describes as occurring the Friday before symptom onset. The patient mentions previous treatment for appendicitis in November wherein surgery was declined by the surgical team.
pt actually had some pain before her trip, intermittently
talkedto her GI doctor who wanted to r/o infection before treating her with steroids but she never gave the stool samples
PAST MEDICAL AND SURGICAL HISTORY
- Crohns disease
- Previous appendicitis (no surgical intervention)
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
Recent travel to the [facility].
PHYSICAL EXAM
- Nursing notes reviewed and vital signs reviewed.
GENERAL: Alert , in no apparent distress
EYE: pupils equal and reactive
NECK: Supple
ENT: o/p clr, mmm.
CARDIAC: Regular rate and rhythm .
LUNGS: Clear breath sounds bilaterally, no acute respiratory distress, no wheezes/rales/rhonchi
ABDOMEN: Soft, moderate localized RLQ and lower abd tenderness, mild guarding, no rebound no cvat, normal bowel sounds
NEUROLOGICAL: Alert and oriented, no focal neuro deficits
SKIN: Warm and dry, skin intact.
MUSCULOSKELETAL: No edema, well perfused. neg ken's sign
PSYCH: Normal and appropriate interaction.
PROBLEM LIST
Acute Problems:
- Abdominal pain and cramping
- Nausea
Chronic Problems:
- Crohns disease
PLAN
The treatment plan includes obtaining a computed tomography scan to evaluate potential Crohn�s flare or other complications. Blood work will be drawn, and intravenous pain medication will be administered along with intravenous fluids for hydration.
Patient education on the use of loperamide was discussed.
DIFFERENTIAL DIAGNOSIS
The Differential Diagnosis includes, in no particular order and is not limited to:
1. Crohns disease flare
2. Gastroenteritis
3. Irritable bowel syndrome
4. Appendicitis
5. Intestinal obstruction
6. Food poisoning
7. Diverticulitis
8. Inflammatory bowel disease exacerbation
9. Gallbladder disease
10. Peptic ulcer disease
CARE-UPDATE
08/09/25 - 16:[address] scan shows consistent findings with previous imaging, demonstrating an enlarged appendix with surrounding brianna-appendiceal inflammation, but no abscess or perforation, which is favorable. The inflammation also involves the cecum and
terminal ileum, aligning with the patients known Crohns disease.
A discussion with the GI procurement consultant, Dr. Magallon, indicates a likely recurrence of appendicitis given similarities to the previous clinical presentation, warranting surgical consideration. The patient had experienced mild abdominal discomfort
attributed to Crohns before a recent trip, and steroid therapy was suggested but not initiated due to the timing of travel.
The patient will be admitted for further assessment. The surgical team has been contacted for input regarding possible intervention, while antibiotic management is being discussed. Pending further evaluations from the surgical team, oral intake is
withheld. Adjustments to current Crohn�s medication, specifically the interval of Entyvio administration, are under consideration once the acute issue is resolved.
<Parish Ruelas, DO - Last Filed: 08/09/25 16:30>
*Pulse Oximetry
SaO2: 97
Oxygen Mode of Delivery: Room air
<Janine Hurtado PA-C - Last Filed: 08/09/25 18:24>
*Pulse Oximetry
Patient hypoxic: no (97)
*Critical Care Note
Total Time (30-74mins, 75-104mins- exclusive of procedures): Not Applicable
ED Attending Note
<Parish Ruelas DO - Last Filed: 08/09/25 16:30>
ED Attending Note
Patient seen and examined by attending physician: Yes
I performed the substantive portion of visit, reviewed & personally made and approve the management plan that is documented in note by myself or PAVAN.: Yes
ED Attending Note:
I evaluated the patient at bedside. Although the patient has a normal white blood cell count, she does have concerning exam findings with rebound on examination. Discussed case with Dr. Loyd. He recommended antibiotics and holding off on
steroids for now. Awaiting to hear from Dr. Otero.
-
Portions of this chart may have been created with voice recognition software.� Occasional wrong word or��sound alike� substitutions may have occurred due to the inherent limitations of voice recognition software.
Discharge Plan
Departure
Patient Disposition: Admit
Date of Disposition: 08/09/25
Time of Disposition: 16:24
Admit to: Med/Surg
Presentation/result/management discussed w/ accepting MD/DO: Hospitalist
Condition: Fair
Discharge Problem:
Acute appendicitis, Crohn's disease
Interventions
Interventions:
*Risk Screen - Suicide Last Done: 08/09/25 10:53
*General Assessment Last Done: 08/09/25 12:41
*Neglect/Abuse Screening Last Done: 08/09/25 12:41
*ED COVID-19 Vaccine History Last Done: 08/09/25 12:41
*ED Influenza Vaccine History Last Done: 08/09/25 10:53
[facility] Fall Risk Assessment Tool Last Done: 08/09/25 12:41
TJ-Myhjfu-Ifhmlddemr Assessment Last Done: 08/09/25 12:41
--- NOTE | 2025-08-09 16:33 | HPS.HSE ---
Family Physician
-
Family Physician: Iwona Chamberlain NP
Chief Complaint
-
abdominal pain
History of Present Illness
35-year-old female with a known history of Crohn disease on Entyvio (GI is from [place]), presenting with right sided abdominal pain, nausea, and cramping for past two days. she had diarrhea and vomiting on Friday. she was [facility] last week.
she was eating food our outside. the abdominal pain persisted. denied fever, chills, chest pain, short of breath. Patient denies any headache, dizzy or syncope. Patient denied dysuria hematuria.
CT concerning for Crohn's versus appendicitis. Patient received a dose of Dilaudid, normal saline, Zofran, Zosyn in ER. Stool for C. difficile and culture sent from ER. Admitted for further management
Medical History
Past Medical History
Past Medical History: Reports Other
Additional Past Medical History:
uterine fibroid
Chron's disease
Past Surgical History: Reports None and Other
Social History
Tobacco: Non-smoker
Alcohol: None
Drug: None
Living: With Family
Family History
Family History: Not pertinent
Allergies / Home Medications
Allergies reflects when Allergies were last updated in [employer].
Home Medications with original date entered in [employer]
Allergy/Medication List:
Allergies
Allergy/AdvReac Type Severity Reaction Status Date / Time
latex Allergy Itching Verified 08/09/25 10:53
Home Medications
vedolizumab 300 mg intravenous solution (Entyvio) 300 mg IV Q8W Gastrointestinal Agent, 12/18/24
Probiotic 1 tab PO DAILY 08/09/25
Review of Systems
-
Constitutional: Reports No Symptoms
EENT: Reports No Symptoms
Respiratory: Reports No Symptoms
Cardiac: Reports No Symptoms
Abdomen/GI: Reports Abdominal Pain, Nausea, Vomiting and Diarrhea
: Reports No Symptoms
Musculoskeletal: Reports No Symptoms
Skin: Reports No Symptoms
Neurological: Reports No Symptoms
Endocrine: Reports No Symptoms
Hematologic/Lymphatic: Reports No Symptoms
Psych: Reports No Symptoms
Physical Exam
Vital Signs
Vital Signs
Temp Pulse Resp BP Pulse Ox
97.4 F 69 18 109/58 97
08/09/25 10:53 08/09/25 15:49 08/09/25 15:49 08/09/25 15:49 08/09/25 16:24
Physical Exam
General: Well Developed, Well Nourished and No Apparent Distress
HEENT: NormoCephalic, Moist mucous membranes and Atraumatic
Respiratory: Clear
Cardiac: S1/S2 and Regular Rhythm; No Murmur or Rub
GI: Soft, Non Distended, Normal Bowel Sounds and Tender; No Organomegaly
Rectal: Deferred by Provider
Musculoskeletal: No Clubbing, No Cyanosis and No Edema
Skin: No Rash
Neuro: AO x 3 and Nonfocal/grossly intact
Psych: Calm
Laboratory Results
-
08/09/25 12:20
08/09/25 12:20
Laboratory Results
Lactic Acid 1.1 mmol/L (0.7-2.0) 08/09/25 12:20
Total Bilirubin 0.6 mg/dl (0.2-1.3) 08/09/25 12:20
AST 19 U/L (14-36) 08/09/25 12:20
ALT 15 U/L (0-35) 08/09/25 12:20
Alkaline Phosphatase 55 U/L (38-126) 08/09/25 12:20
Lipase 90 U/L (23-300) 08/09/25 12:20
Data Reviewed
-
CT Scan: Report Reviewed by me
Lab Data: Labs Reviewed by me
Impression/Plan
-
# Abdominal pain concerning for acute appendicitis versus Crohn's disease
-Dilaudid as needed for pain
-Zosyn continued
-Keep patient n.p.o.
-Fluids continue for hydration
- GI and colorectal consulted
- CT abdomen pelvis with impression of The appendix is enlarged with periappendiceal inflammation similar to prior study. Acute appendicitis cannot be excluded although similarity to prior study suggests a chronic process. There is inflammation
surrounding the cecum and terminal ileum consistent with history of Crohn's disease. There is no evidence of an abscess collection although there is free fluid in both lower quadrants.
# DVT prophylaxis
- SCDs
# CODE STATUS
- Full code
[2025-08-09] MEDS: ZOSYN 50 IV ×2 (16:40→21:04)
--- NOTE | 2025-08-09 16:41 | CON.GI ---
Consultation
-
Date/Time Consultation Performed: 08/09/25
Performing Provider: Pablito Loyd MD
Reason for Consultation: abdominal pain, abnormal CT, hx Crohn's
Medical History
Chief Complaint / HPI
Chief Complaint: abd pain
History of Present Illness:
The patient is a 35-year-old female with past medical history as noted presents with increasing abdominal pain. She was in her year state of health, over the past few weeks has been having some mild right lower quadrant discomfort that was
reminiscent of her Crohn's in the past, that was overall mild and intermittent. She went away on a trip and had some diarrhea and then developed increasing right lower quadrant pain, which got much worse prompting her to come to the emergency room.
This is very similar to an episode that happened in November after a trip and GI bug with vomiting and diarrhea had CT scan that suggested possible appendicitis. At that point, however responded well to empiric antibiotics and symptoms resolved. She
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 She was scheduled to have elective appendectomy in August though this has not
happened yet. She had Entyvio level drawn and by report was going to switch to every 6 weeks given her level and her intermittent symptoms over the past couple of weeks. Her last Entyvio was only 3 weeks ago, however. She denies any rashes, joint
swelling, bloody diarrhea, fever or chills.
Past Medical History
Past Medical History: Other (Crohn's ileocolitis as described above, on Entyvio, was about to switch to every 6 weeks, last dose about 3 weeks ago)
Past Surgical History: None
Social History
Tobacco: Non-Smoker
Alcohol: None
Family History
Family History: Reviewed & Not Pertinent
Allergies / Home Medications
Allergy/AdvReac Type Severity Reaction Status Date / Time
latex Allergy Itching Verified 08/09/25 10:53
�Medication �Instructions �Recorded
ibuprofen 200 mg tablet 400 mg PO DAILYPRN PRN mild pain 12/18/24
vedolizumab 300 mg intravenous 300 mg IV Q8W Gastrointestinal 12/18/24
solution (Entyvio) Agent,
amoxicillin 875 mg-potassium 1 tab PO Q12H 10 days #20 tabs 12/20/24
clavulanate 125 mg tablet
Review of Systems
-
All other systems: A 12 pt ROS was Negative except as stated above in HPI
Vital Signs
Temp Pulse Resp BP Pulse Ox
97.4 F 69 18 109/58 97
08/09/25 10:53 08/09/25 15:49 08/09/25 15:49 08/09/25 15:49 08/09/25 16:24
Physical Exam
Exam
General: NAD
HEENT: MMM, anicteric, no lymphadenopathy
Heart: Regular, no murmurs
Lungs: CTA bilaterally
Abdomen: normal bowel sounds, soft, moderate right lower quadrant tenderness with some rebound
Extremeties: no edema
Skin: no rashes
Results
WBC 6.2 10^3/uL (4.8-10.8) 08/09/25 12:20
Hgb 15.3 g/dL (12.0-16.0) 08/09/25 12:20
Hct 45.1 % (37.0-47.0) 08/09/25 12:20
MCV 87.2 fL (81.0-99.0) 08/09/25 12:20
Plt Count 235 10^3/uL (130-400) 08/09/25 12:20
Absolute Neuts (auto) 4.9 10^3/uL (1.4-6.5) 08/09/25 12:20
Sodium 134 mmol/L (135-145) L 08/09/25 12:20
Potassium 4.7 mmol/L (3.5-5.1) 08/09/25 12:20
Chloride 103 mmol/L (98-107) 08/09/25 12:20
Carbon Dioxide 25 mmol/L (22-30) 08/09/25 12:20
BUN 9 mg/dl (7-17) 08/09/25 12:20
Creatinine 0.7 mg/dL (0.6-1.0) 08/09/25 12:20
Calcium 9.6 mg/dl (8.4-10.2) 08/09/25 12:20
Total Bilirubin 0.6 mg/dl (0.2-1.3) 08/09/25 12:20
AST 19 U/L (14-36) 08/09/25 12:20
ALT 15 U/L (0-35) 08/09/25 12:20
Alkaline Phosphatase 55 U/L (38-126) 08/09/25 12:20
Lipase 90 U/L (23-300) 08/09/25 12:20
Diagnostic Image Results:
CT:
IMPRESSION:
The appendix is enlarged with periappendiceal inflammation similar to prior study. Acute appendicitis cannot be excluded although similarity to prior study suggests a chronic process. There is inflammation surrounding the cecum and terminal ileum
consistent with history of Crohn's disease. There is no evidence of an abscess collection although there is free fluid in both lower quadrants.
Prior GI Procedures:
EGD:
Colonoscopy:
Assessment / Plan
-
1. Right lower quadrant pain: Again as in November difficult to completely discern from acute appendicitis versus Crohn's flare. In my looking at her CT scan I think the base of her cecum and appendix do look more inflamed than just the terminal
ileum, and given more of the acuity of her symptoms, relative good control of her underlying Crohn's disease with minimal activity on last colonoscopy in January, and last Entyvio only 3 weeks ago, I think Crohn's flare seems less likely. We discussed
that this is a difficult clinical scenario, and if urgent surgery was needed would be more than just appendectomy, likely ileocecectomy which is not ideal urgently. Would be hesitant to give steroids if this is appendicitis. At this point would
recommend IV antibiotics, bowel rest, supportive care and IV fluids. If she starts to improve then, as last time, could complete a course of oral antibiotics and plan elective appendectomy. If she does not improve then may consider a course of
steroids, and if improves would finish a course of oral steroids and increase her Entyvio as planned. If she worsens clinically then may need surgery either way, whether from appendicitis or worsening Crohn's, and again discussed would need
ileocecectomy.
-
-
Thank you for consultation and allowing me to participate in the patient's care. Please call the electronics warfare technician GI physician during the after hours with any questions or concerns.
--- NOTE | 2025-08-09 17:09 | W.PN.UPDATE ---
Update Note
Progress Note Update
This note serves as an addendum to the H&P by mining engineer PAVAN�
Jazmine Reza
HPI
35F
PMHX Crohn dz
- seen at ER for evaluation of increasing abdominal pain started over the past few weeks
- started at mild RLQ discomfort similar to prior Crohn's
- overall mild and intermittent pain
- then went away for the trip and onset of some diarrhea with increasing RLQ pain which led current ER visit
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 and had outpatient colonoscopy 2 months later that showed minimal activity by her report.
- Pending for elective appendectomy in August though this has not happened yet.
- On Entyvio every 6 weeks- last Entyvio was only 3 weeks ago, however.
ROS
denies any rashes, joint swelling, bloody diarrhea, fever or chills.
Relevant VS
Vital Signs
Temp Pulse Resp BP Pulse Ox
97.4 F 69 18 109/58 97
08/09/25 10:53 08/09/25 15:49 08/09/25 15:49 08/09/25 15:49 08/09/25 16:24
PE
Gen: Not toxic
Lungs:non labor breathing
Abdomen:�FIELD INSPECTOR examined reviewed
COLOR PASTE MIXING SUPERVISOR: gross nl
Psych:Nl mood
Relevant Data
CT Abd/pel W Iv And Oral Contr
- The appendix is enlarged with periappendiceal inflammation similar to prior study.
- Acute appendicitis cannot be excluded although similarity to prior study suggests a chronic process.
- There is inflammation surrounding the cecum and terminal ileum consistent with history of Crohn's disease. T
- here is no evidence of an abscess collection although there is free fluid in both lower quadrants.
ASSESSMENT & PLAN
acute RLQ pain wit CT suggest appendicitis
DDX: acute appendicitis vs. Crohn's flare. I
- GI consult noted - Pending CRS evaluation
- c/w empiric IV Zosyn
- NPO and IVF
- PRN analgesia
- Hold off Steroids for now
DVT Px: SCD
Full code
IP MS
--- NOTE | 2025-08-09 20:29 | CON.CRS ---
Consultation
-
Date/Time Consultation Requested: 08/09/2025 19:45
Date/Time Consultation Performed: 08/09/2025 19:45
Requesting Provider: RAMANA Godfrey
Performing Provider: Jozef Otero MD
Reason for Consultation: Crohn's disease/appendicitis
Medical History
-
Chief Complaint: abdominal pain
History of Present Illness:
35-year-old female known to me from her previous admission for same, who presents to the ED with worsening abdominal pain for the past 2 days associated with cramping, nausea and vomiting. She has known ileocolic Crohn�s disease and is maintained on
Entyvio, her last dose 3 weeks ago. She does not recall eating anything unusual prior to the onset of symptoms but did just return from the [facility]. She had diffuse abdominal discomfort for the past few weeks but the pain worsened and it was
associated with abdominal distention and loose, nonbloody stools. She denies any fevers or chills. Typically her bowels are regular and at present she denies any nausea.
She was admitted in November 2024 for similar symptoms and a CT scan of the abdomen and pelvis revealed a dilated appendix measuring 1.5cm with mild inflammatory changes; there was also prominent fat deposition in the cecum associated with luminal
narrowing. Surgery was discussed but she improved with antibiotics and was discharged home. �She is followed by Dr. Abreu at [place] and a colonoscopy 2 months ago �looked good.�� She also underwent a CT scan of the abdomen and pelvis in [place] one
month ago and the report is not available. She underwent the CT scan in anticipation of possible surgery at [place] and has an appointment with Dr. Dale in August.� She has not undergone any previous abdominal surgery and there are no
extra-intestinal manifestations of IBD. Her weight has remained stable.
While in the ED her temperature is 99.4, blood pressure normal, and her pulse is 100. She is in no acute distress and her abdomen is slightly distended with mild lower abdominal tenderness, right greater than left. There is no tympany. Her WBC is
normal. I personally reviewed the CT scan images and the appendix remains slightly distended but the cecum remains thickened with inflammation surrounding the terminal ileum; there is small amount of fluid in the paracolic gutters and no bowel
obstruction, perforation, or abscess.
Past Medical History
Past Medical History: Other (Crohn's ileocolitis)
Past Surgical History: None
Social History
Tobacco: Non-Smoker
Alcohol: None
Drug: None
Personal:
Living: With Family
Employment: Employed
Family History
Family History: Reviewed & Not Pertinent
Allergies / Home Medications
Allergy/AdvReac Type Severity Reaction Status Date / Time
latex Allergy Itching Verified 08/09/25 10:53
�Medication �Instructions �Recorded �Confirmed �Type
vedolizumab 300 mg intravenous 300 mg IV Q8W Gastrointestinal 12/18/24 08/09/25 History
solution (Entyvio) Agent,
Probiotic 1 tab PO DAILY 08/09/25 08/09/25 History
Review of Systems
-
History Source: Patient
All other systems: Negative unless noted
A 10 point review of systems was completed, and was negative except as per HPI.
Physical Exam
Vital Signs
Temp 99.4 F 08/09/25 20:01
Pulse 100 08/09/25 20:01
Resp Rate 20 08/09/25 20:01
Blood pressure 103/66 08/09/25 20:01
SaO2 96 08/09/25 20:01
08/08/25 08/09/25 08/10/25
06:59 06:59 06:59
Actual Weight 57.606 kg
Body Mass Index (BMI) 21.8
Lab Results / Allergies
08/09/25 12:20
08/09/25 12:20
WBC 6.2 10^3/uL (4.8-10.8) 08/09/25 12:20
Hgb 15.3 g/dL (12.0-16.0) 08/09/25 12:20
Hct 45.1 % (37.0-47.0) 08/09/25 12:20
Plt Count 235 10^3/uL (130-400) 08/09/25 12:20
Abs Immat Gran (auto) 0.0 10^3/uL (0-0.05) 08/09/25 12:20
Neutrophils % 79.3 % (42.2-75.2) H 08/09/25 12:20
Allergy/AdvReac Type Severity Reaction Status Date / Time
latex Allergy Itching Verified 08/09/25 10:53
Physical Exam
General: Well Developed and Well Nourished
HEENT: Anicteric
Respiratory: Clear
Cardiac: Regular Rhythm
GI: Soft, Tender (lower abdomen, right > left) and Distended (mild)
Neuro: Awake and Alert
Data Reviewed
-
CT Scan: Image Personally Visualized and interpreted, Report Reviewed by me, Discussed with Patient and Discussed with Family
Labs: Labs Reviewed by me, Discussed with Patient and Discussed with Family
Assessment / Plan
-
Dilated appendix in the setting of underlying Crohn's ileocolitis.
I reviewed the current findings with the patient, her and her sister. I suspect she has a chronically dilated appendix due to underlying cecal inflammation from Crohn�s disease. The thickening of the cecum and inflammatory changes near the
small bowel seem more pronounced than the appendiceal inflammation. It is possible this represents acute on chronic appendicitis. I reviewed the treatment options including nonoperative management with antibiotics (?steroids) with possible surgery
in the near future.� Without surgery there is a risk of worsening of the inflammation and perforation. Surgery would involve a laparoscopy, possible appendectomy and possible ileocolic resection if the cecum/appendiceal base are inflamed. I
explained that there is a risk of a leak at the appendiceal stump and fistula formation if there is underlying inflammation of the bowel. Risks of surgery include, but are not limited to, bleeding, infection, adhesions, hernias, injury to other
structures, appendiceal stump leak/fistula formation, anastomotic leak if one is performed, recurrent Crohn�s disease that could require more surgery, cardiopulmonary complications, and the risks of anesthesia.� I also reviewed the typical recovery
for both an appendectomy and ileocolic resection, as well as the functional results.� All questions answered.
I allowed the family to discuss the options privately and she ultimately consented to surgery. The plan is for a modified bowel prep tonight, IV fluids, antibiotics and surgery tomorrow. The plan is for a laparoscopy and possible appendectomy,
possible robotic ileocolic resection. I explained that on occasion open surgery is needed based upon the operative findings. Arrangements for the operating room are in progress.
I will attempt to obtain the images from her CT scan at [place], the recent colonoscopy report and discuss with Dr. Abreu.
[2025-08-09] MEDS: GAVILAX 238 GM PO (21:06)
[2025-08-10] VITALS (12 sets, daily range): BP systolic 94–113; BP diastolic 59–78
[2025-08-10] MEDS: TYLENOL 650 MG PO (03:16)
[2025-08-10] MEDS: ZOSYN 50 IV ×3 (03:16→21:51)
[2025-08-10] MEDS: DILAUDID 0.5 MG IV ×3 (03:17→22:49)
--- NOTE | 2025-08-10 04:52 | PTCARENOTE ---
Patient arrived to unit from ED via stretcher at 1940. Patient ambulated to bed w/o assist, steady gait & erect posture. Patient not c/o pain at this moment, but does endorse pain aggravates with movement. IVF started. Patient NPO in AM for OR-bowel
prep overnight-See OCT. VSS-BP low-baseline for patient; denies dizziness, lightheadedness or SOB w/ ambulation. Spouse & family at bedside-updated on POC and agreeable to it at this time. Bed in lowest position and locked, call hein within reach,
patient has no further concerns at this time.
--- NOTE | 2025-08-10 06:29 | W.PN.GI.CBS2 ---
Today's Communication / Plan
-
Please see assessment and plan for details.
Assessment / Plan
-
1. Right lower quadrant pain: Again as in November difficult to completely discern from acute appendicitis versus Crohn's flare. In my looking at her CT scan I think the base of her cecum and appendix do look more inflamed than just the terminal
ileum, and given more of the acuity of her symptoms, relative good control of her underlying Crohn's disease with minimal activity on last colonoscopy in January, and last Entyvio only 3 weeks ago, I think Crohn's flare seems less likely and
appendicitis seems more likely. She has not improved much with antibiotics, with some increasing tenderness and low-grade temperature. I do think that surgery is appropriate at this point as detailed by Dr. Otero with her. Will continue to follow
for now.
Subjective
Subjective
Date of Service: August 10, 2025
Patient feeling okay, though having some increasing pain, now to the left side as well, low-grade fever overnight, no nausea, vomiting.
Objective
Data Reviewed
Laboratory Data:
Laboratory Results
Total Bilirubin 0.6 mg/dl (0.2-1.3) 08/09/25 12:20
AST 19 U/L (14-36) 08/09/25 12:20
ALT 15 U/L (0-35) 08/09/25 12:20
Alkaline Phosphatase 55 U/L (38-126) 08/09/25 12:20
Lipase 90 U/L (23-300) 08/09/25 12:20
Vital Signs and I&O:
Vital Signs
Temp Pulse Resp BP Pulse Ox
100.2 F 87 16 96/60 97
08/10/25 02:52 08/09/25 23:05 08/09/25 23:05 08/09/25 23:05 08/09/25 23:05
I&O
08/08/25 08/09/25 08/10/25
06:59 06:59 06:59
Intake Total 1800 / 1800
Balance 1800 / 1800
Physical Exam
Physical Exam
General: NAD
Abdomen: normal bowel sounds, soft, moderate now diffuse tenderness, mild rebound
[2025-08-10] MEDS: NSS 1000 IV (08:28)
[2025-08-10 09:06] LABS: Hematocrit 38.4 % (37.0-47.0); Hemoglobin 13.0 g/dL (12.0-16.0); Mean Corp Hgb Conc. 33.9 g/dL (33.0-37.0); Mean Corpuscular Volume 86.3 fL (81.0-99.0); Platelet Count 221 10^3/uL (130-400); Red Cell Dist. Width 13.3 % (11.5-14.5)
[2025-08-10 09:16] LABS: INR 1.40; PT 16.9 Sec (11.4-14.6)
[2025-08-10 09:17] LABS: APTT 34.9 Sec (23.4-35.0)
[2025-08-10 10:09] LABS: Blood Urea Nitrogen 5 mg/dl (7-17); Calcium 8.8 mg/dl (8.4-10.2); Carbon Dioxide 23 mmol/L (22-30); Chloride 102 mmol/L (98-107); Estimated Creatinine Clearance 96 ml/min; Glucose 98 mg/dl (70-99); Potassium 4.4 mmol/L (3.5-5.1); Sodium 133 mmol/L (135-145); eGFR > 60.00
--- NOTE | 2025-08-10 13:16 | W.PN.HOSP.TC ---
Today's Communication/Plan
-
for OR today
maintain on abx/pain meds
Assessment / Plan
Assessment / Plan
CT a.p
The appendix is enlarged with periappendiceal inflammation similar to prior study. Acute appendicitis cannot be excluded although similarity to prior study suggests a chronic process. There is inflammation surrounding the cecum and terminal ileum
consistent with history of Crohn's disease. There is no evidence of an abscess collection although there is free fluid in both lower quadrants.
1. Acute on chronic appendicitis
- Patient presented for persistent right lower quadrant abdominal pain.
- Initial question of potential Crohn's disease flareup although due to localized symptoms in right lower quadrant with signs of appendicitis surgery planning to take patient to the OR for lap appendectomy possibly SB resection if needed
- Maintain patient on IV Zosyn
- Continue symptomatic care with pain medication/antiemetics
- GI and CRS help appreciated .
2. History of Crohn's disease
-Patient symptom feels less likely related to Crohn's flareup
-Also on Entyvio every 8 weeks and has been tolerating without any problem
Full code
Anticipated Discharge: 24 - 48 hours
Subjective/Interval History
-
Date of Service: August 10, 2025
Complaining of right lower quadrant abdominal pain
Denies nausea or vomiting
afebrile in the night
No other reported problems
Objective Data
-
Labs:
Laboratory Results
08/10/25
08:20
WBC 6.7
Hgb 13.0
Hct 38.4
Plt Count 221
PT 16.9 H
INR 1.40
APTT 34.9
Sodium 133 L
Potassium 4.4
Chloride 102
Carbon Dioxide 23
BUN 5 L
Creatinine 0.7
Glucose 98
Calcium 8.8
Vital Signs:
Vital Signs
Temp Pulse Resp BP Pulse Ox
98.4 F 74 16 94/59 95
08/10/25 07:05 08/10/25 07:05 08/10/25 07:05 08/10/25 07:05 08/10/25 08:00
I&O
08/09/25 08/10/25 08/11/25
06:59 06:59 06:59
Intake Total 1800 / 1800
Balance 1800 / 1800
Review of Systems
-
Respiratory: Reports No Symptoms
Cardiac: Reports No Symptoms
Abdomen/GI: Reports No Symptoms
Physical Exam
-
General: Negative Cachectic
Respiratory: Clear to Auscultation
Cardiac: Regular Rhythm and S1/S2; Negative Murmur
GI: Soft, Nontender and Normal Bowel Sounds
Skin: Warm and Dry; Negative Rash
Neuro: AO x 3
Psych: Calm
--- NOTE | 2025-08-10 13:39 | CM ---
Patient seen at bedside in room on [address] with family present earlier today. Patient states that she lives with family in a 2 story home. Patient has no DME at home and uses the [facility]- any of the physicians and the [facility] on [address] [place].
Patient is for surgery today and CM will continue to follow for discharge planning needs.
Plan; home with No needs
--- NOTE | 2025-08-10 16:26 | W.IMMPOSTOP ---
Surgical Immed Post Op Note
-
Primary Surgeon: Jozef Otero MD
Assistants: Stephanie Branch PA-C, REE Escamilla, JESS Espinal, ALFREDO Faust
Pre-op Diagnosis: Appendicitis/Crohn's disease
Post-op Diagnosis: Perforated appendicitis
Procedure Performed: Robotic appendectomy
Anesthesia Type: GET
Specimen / Cultures: Peritoneal cultures
Appendix
Estimated Blood Loss: 15cc
Complications: None
Operative Findings: Purulent peritonitis
Perforated appendicitis (midportion)
Chronic ileocolitis
Patient's updated.
[2025-08-10] MEDS: ZOSYN IV (17:26)
[2025-08-10] MEDS: NORMOSOL-R/PLASMALYTE-A 1000 IV (17:27)
--- NOTE | 2025-08-10 17:30 | PTCARENOTE ---
Patient post op Robotic appendectomy. Pt drowsy, but verbal. Puncture and incision abdomen sites intact .Vs documented. Right NJ tube intact and on continues suction per order. Tolerating well. No c/o at this time. call hein within reach. Plan of
care ongoing.
[2025-08-10] MEDS: HURRICAINE SPRAY 1 APPLIC TOPICAL (18:04)
[2025-08-10] MEDS: ZOFRAN 4 MG IV (22:30)
--- NOTE | 2025-08-10 22:39 | PTCARENOTE ---
08/10: went to assess placement of ngt and irrigate per order. pt had emesis. NGT coiled in throat. removed for displacement. [employer] notified.
--- NOTE | 2025-08-11 00:25 | PTCARENOTE ---
08/10: Dr. Otero notified of NGT displacement and removal. Order to leave out per provider.
[2025-08-11] MEDS: DILAUDID 0.5 MG IV ×3 (02:51→13:54)
[2025-08-11 03:00] VITALS: BP 94/57
[2025-08-11] MEDS: ZOSYN 50 IV ×4 (04:06→21:42)
[2025-08-11] MEDS: NORMOSOL-R/PLASMALYTE-A 1000 IV ×2 (05:22→13:09)
--- NOTE | 2025-08-11 06:00 | W.PN.GI.CBS2 ---
Today's Communication / Plan
-
Please see assessment and plan for details.
Assessment / Plan
-
1. Perforated appendicitis: In the setting of Crohn's ileocolitis, likely had been chronic, now status post robotic appendectomy and overall doing well. Having flatus, no nausea or vomiting after NG tube DC'd, overall feeling better. At this
point we will continue antibiotics and postoperative care per surgery. Do not think there is any role for steroids in the near future given her infection and overall improving, think most of her symptoms were likely from smoldering chronic
appendicitis rather than from Crohn's flare per se. She is not due for her next Entyvio for at least 3 weeks. She will follow-up with her primary supervisor [employer] on discharge.
We will sign off for now, though please call back with any further questions.
Subjective
Subjective
Date of Service: August 11, 2025
Events noted, perforated appendicitis with some feculent fluid in the abdomen, now status post robotic appendectomy. Overnight she has done very well, with some flatus. Had some nausea related to NG tube, though after DC she has had no further
nausea. She has expected abdominal pain though feels that her original pain has resolved. No fevers or chills overnight.
Objective
Data Reviewed
Laboratory Data:
Laboratory Results
PT 16.9 Sec (11.4-14.6) H 08/10/25 08:20
INR 1.40 08/10/25 08:20
APTT 34.9 Sec (23.4-35.0) 08/10/25 08:20
Total Bilirubin 0.6 mg/dl (0.2-1.3) 08/09/25 12:20
AST 19 U/L (14-36) 08/09/25 12:20
ALT 15 U/L (0-35) 08/09/25 12:20
Alkaline Phosphatase 55 U/L (38-126) 08/09/25 12:20
Lipase 90 U/L (23-300) 08/09/25 12:20
Vital Signs and I&O:
Vital Signs
Temp Pulse Resp BP Pulse Ox
98.7 F 80 18 94/57 97
08/11/25 03:00 08/11/25 03:00 08/11/25 03:00 08/11/25 03:00 08/11/25 03:00
I&O
08/09/25 08/10/25 08/11/25
06:59 06:59 06:59
Intake Total 1800 / 1800 50 / 50
Output Total 160 / 160
Balance 1800 / 1800 -110 / -110
Physical Exam
Physical Exam
General: NAD
Abdomen: Few normal bowel sounds, soft, expected incisional pain
[2025-08-11 07:40] LABS: Hematocrit 35.7 % (37.0-47.0); Hemoglobin 12.4 g/dL (12.0-16.0); Mean Corp Hgb Conc. 34.7 g/dL (33.0-37.0); Mean Corpuscular Volume 86.7 fL (81.0-99.0); Platelet Count 234 10^3/uL (130-400); Red Cell Dist. Width 13.1 % (11.5-14.5)
[2025-08-11 08:00] VITALS: BP 101/61
[2025-08-11] MEDS: ZOFRAN 4 MG IV (08:03)
[2025-08-11 08:08] LABS: Blood Urea Nitrogen 7 mg/dl (7-17); Calcium 8.9 mg/dl (8.4-10.2); Carbon Dioxide 23 mmol/L (22-30); Chloride 103 mmol/L (98-107); Estimated Creatinine Clearance 96 ml/min; Glucose 118 mg/dl (70-99); Potassium 4.6 mmol/L (3.5-5.1); Sodium 135 mmol/L (135-145); eGFR > 60.00
[2025-08-11] MEDS: OFIRMEV 100 IV ×3 (10:11→21:13)
--- NOTE | 2025-08-11 10:24 | W.PN.CRS1 ---
Today's Communication / Plan
-
Remain NPO with chips and sips
Increase Dilaudid
Add Compazine
Out of bed
Assessment/Plan
-
POD#1 Robotic appendectomy
vitals: normal
WBC: 6.0. Hgb 11.4.
- Remain NPO with chips and sips as she has little flatus and is burping. She was nauseous earlier today and vomited the NG tube out last night. If she vomits continuously she will need an NG tube placed. IV fluids remain in place while NPO.
- Out of bed as tolerated
- Incentive spirometry every hour while awake
- Start Lovenox for DVT prophylaxis. Teds and SCDs in place.
- Wound cultures pending.
- OR pathology pending.
- Appreciate hospitalist.
- Will add Compazine every 6 hours IV as needed.
- Increase Dilaudid IV. Will add Ofirmev every 6 hours IV.
- Continue Zosyn every 6 hours IV
Subjective Data
Procedure
08/10/2025- Robotic appendectomy
Subjective Data
Date of Service: August 11, 2025
Patient states she vomited last night. She was nausous this morning but it stopped. She has some gas pain and very mild flatus. She is burping. Last night she vomitted her NGT out.
Objective Data
-
Vital Signs
Temp Pulse Resp BP Pulse Ox
99.4 F 87 16 101/61 98
08/11/25 08:00 08/11/25 08:00 08/11/25 08:00 08/11/25 08:00 08/11/25 08:00
Intake & Output
08/10/25 08/11/25 08/12/25
06:59 06:59 06:59
Intake Total 1800 / 1800 1270 / 1270
Output Total 160 / 160
Balance 1800 / 1800 1110 / 1110
Intake:
Oral fluids 1800 / 1800 120 / 120
IV fluids (Total) 1050 / 1050
normosol 50 / 50
IV piggybacks 100 / 100
Amount instilled into GI Tube ( 0 / 0
Total)
Gastrostomy 0 / 0
Output:
Gastrointestinal tube output ( 0 / 0
Total)
Gastrostomy 0 / 0
Urine, Pack 160 / 160
Other:
Number of approximated MODERATE 2 2
amounts of urine
Lab Results
08/11/25 07:14
08/11/25 07:14
Physical Exam
-
General: No Acute Distress and AOx3
Abdomen: Soft, Distended (mild) and Tender (b/l lower abdominal pain - moderate)
Skin: Warm and Dry
Incision: Clear, Dry, Intact
[2025-08-11 11:00] VITALS: BP 104/63
[2025-08-11] MEDS: COMPAZINE 5 MG IV (11:06)
--- NOTE | 2025-08-11 13:15 | W.PN.HOSP.TC ---
Today's Communication/Plan
-
Maintained on antibiotic
Follow intraoperative culture
Diet advancement per colorectal surgery
Assessment / Plan
Assessment / Plan
CT a.p
The appendix is enlarged with periappendiceal inflammation similar to prior study. Acute appendicitis cannot be excluded although similarity to prior study suggests a chronic process. There is inflammation surrounding the cecum and terminal ileum
consistent with history of Crohn's disease. There is no evidence of an abscess collection although there is free fluid in both lower quadrants.
1. Acute on chronic appendicitis and perforated appendix
Status post laparoscopic appendectomy
- Patient presented for persistent right lower quadrant abdominal pain.
- patient was taken to the OR with patient getting laparoscopic appendectomy for perforated appendix.
- Maintain patient on IV Zosyn
- Continue symptomatic care with pain medication/antiemetics
- GI has signed off. Colorectal surgeon plan to advance diet slowly as possible
2. History of Crohn's disease
-Patient symptom feels less likely related to Crohn's flareup
-Also on Entyvio every 8 weeks and has been tolerating without any problem
Full code
Anticipated Discharge: 24 - 48 hours
Subjective/Interval History
-
Date of Service: August 11, 2025
Lower abdominal discomfort
Episode of nausea and vomiting in the night
afebrile in night
Objective Data
-
Labs:
Laboratory Results
08/11/25
07:14
WBC 6.0
Hgb 12.4
Hct 35.7 L
Plt Count 234
Sodium 135
Potassium 4.6
Chloride 103
Carbon Dioxide 23
BUN 7
Creatinine 0.7
Glucose 118 H
Calcium 8.9
Vital Signs:
Vital Signs
Temp Pulse Resp BP Pulse Ox
99.4 F 87 16 104/63 99
08/11/25 11:00 08/11/25 11:00 08/11/25 11:00 08/11/25 11:00 08/11/25 11:00
I&O
08/10/25 08/11/25 08/12/25
06:59 06:59 06:59
Intake Total 1800 / 1800 1270 / 1270
Output Total 160 / 160
Balance 1800 / 1800 1110 / 1110
Review of Systems
-
Respiratory: Reports No Symptoms
Cardiac: Reports No Symptoms
Abdomen/GI: Reports Abdominal Pain, Nausea and Vomiting
Physical Exam
-
General: Negative Appears in Distress
HEENT: Negative Oxygen
GI: Soft, Nontender and Tender; Negative Normal Bowel Sounds
Neuro: Awake, Alert and Oriented
[2025-08-11 15:00] VITALS: BP 98/58
--- NOTE | 2025-08-11 15:58 | CM ---
Patient seen at bedside, patient states she feels better but sleepy. CM will continue to follow for discharge planning needs.
Plan; home with family supports watch for VN needs
[2025-08-11] MEDS: TORADOL 15 MG IV (19:51)
[2025-08-11 23:15] VITALS: BP 96/58
[2025-08-12] MEDS: NORMOSOL-R/PLASMALYTE-A 1000 IV ×2 (00:18→09:30)
[2025-08-12] MEDS: TORADOL 15 MG IV ×3 (01:00→13:18)
[2025-08-12] MEDS: OFIRMEV 100 IV (03:32)
[2025-08-12] MEDS: ZOSYN 50 IV ×3 (04:12→15:09)
[2025-08-12 07:21] VITALS: BP 103/64
[2025-08-12 08:20] LABS: Hematocrit 33.0 % (37.0-47.0); Hemoglobin 11.3 g/dL (12.0-16.0); Mean Corp Hgb Conc. 34.2 g/dL (33.0-37.0); Mean Corpuscular Volume 86.4 fL (81.0-99.0); Platelet Count 230 10^3/uL (130-400); Red Cell Dist. Width 13.1 % (11.5-14.5)
[2025-08-12 08:48] LABS: Blood Urea Nitrogen 8 mg/dl (7-17); Calcium 8.1 mg/dl (8.4-10.2); Carbon Dioxide 23 mmol/L (22-30); Chloride 103 mmol/L (98-107); Estimated Creatinine Clearance 96 ml/min; Glucose 99 mg/dl (70-99); Potassium 3.9 mmol/L (3.5-5.1); Sodium 134 mmol/L (135-145); eGFR > 60.00
[2025-08-12] MEDS: ZOFRAN 4 MG IV (09:24)
--- NOTE | 2025-08-12 09:55 | W.PN.CRS1 ---
Today's Communication / Plan
-
fulls to low residue
roxicodone
possible d/c later today if feeling well
Assessment/Plan
-
POD#2 Robotic appendectomy
vitals: normal
WBC: 5.1 (6.0), Hgb 11.3 (12.4)
abdominal cultures: gram negative bacilli - pending
peritoneal fluid: anaerobic cultures
- Full liquid diet. Advance to low residue if tolerates fulls.
- Out of bed as tolerated
- Incentive spirometry every hour while awake
- Continue Lovenox for DVT prophylaxis. Teds and SCDs in place.
- Wound cultures pending.
- OR pathology pending.
- Appreciate hospitalist.
- Continue Zosyn every 6 hours IV. Convert to oral as an outpatient.
- Change Dilaudid to Roxicodone po PRN
- Possible d/c later today if feeling well, follow up with Dr. Otero in the office in 2 weeks. Finish course of antibiotics.
Subjective Data
Procedure
08/10/2025- Robotic appendectomy
Subjective Data
Date of Service: August 12, 2025
Patient states she is feeling a lot better today. She is having bowel movements and passing flatus. Her pain is controlled. She started clears yesterday and was able to tolerate it. She would like to try more.
Objective Data
-
Vital Signs
Temp Pulse Resp BP Pulse Ox
99.3 F 78 16 103/64 98
08/12/25 07:21 08/12/25 07:21 08/12/25 07:21 08/12/25 07:21 08/12/25 07:21
Intake & Output
08/11/25 08/12/25 08/13/25
06:59 06:59 06:59
Intake Total 1270 / 1270 1274 / 1274
Output Total 160 / 160
Balance 1110 / 1110 127 / 1274
Intake:
Oral fluids 120 / 120 360 / 360
IV fluids (Total) 1050 / 1050 614 / 614
normosol 50 / 50
IV piggybacks 100 / 100 300 / 300
Amount instilled into GI Tube ( 0 / 0
Total)
Gastrostomy 0 / 0
Output:
Gastrointestinal tube output ( 0 / 0
Total)
Gastrostomy 0 / 0
Urine, Pack 160 / 160
Other:
Number of approximated MODERATE 2 3
amounts of urine
Number of unmeasured liquid
stools
Rectum 2
Lab Results
08/12/25 07:28
08/12/25 07:28
Physical Exam
-
General: No Acute Distress and AOx3
Abdomen: Soft, Distended (mild) and Tender (mild around incisions)
Skin: Warm and Dry
Incision: Clear, Dry, Intact
--- NOTE | 2025-08-12 10:33 | CM ---
Addendum entered by Charlee Mills 08/12/25 15:02:
Patient for discharge home no needs anticipated
Original Note:
Patient seen at bedside with family present on . Patient currently on diet of low residue and stated that she anticipates discharge later today. Patient family to transport and no needs anticipated at this time. CM will continue to follow for
discharge planning needs.
Plan; home with no needs
--- NOTE | 2025-08-12 15:00 | W.DCSUMMARY ---
Discharge Summary
Discharge Data
Date of Admission: 08/09/25
Date of Discharge: 08/12/25
-
Pending Results: No
Hospital Course
Discharging Physician : Dr Al Carrero
Disposition : To home
Primary care physician : Dr. Iwona Chamberlain
Principal Discharge diagnosis :
Acute on chronic appendicitis
Perforated appendix
Purulent Peritonitis
Chronic Discharge diagnosis :
History of Crohn's disease on Entyvio
Physical examination:
GEN: aox3
Abd: N BS, soft, nontender, nondistended
Neuro: No motor or sensory deficits
Ext: No cyanosis, Clubbing, edema
Hospital Course :
Patient is a 35-year-old female with above-mentioned past medical history came to ER for new onset of right-sided abdominal pain nausea/vomiting and diarrhea. Patient similar episode in November and was found to having appendicitis and was treated
conservatively. Repeat CT scan this admission showing right lower quadrant colonic/ileal inflammation with possible appendicitis as well. GI and colorectal surgery was involved in care and felt symptoms related to smoldering appendicitis. In
light of recurrence of symptoms colorectal surgery recommended resection. Patient underwent laparoscopic appendectomy and was found to having perforated appendix. Patient have associated chronic ileocolitis and purulent peritonitis in the right
pelvic region. Patient had an uneventful recovery. Intraoperative cultures were growing gram-negative bacilli further identification and susceptibilities were pending at time of discharge. Patient was maintained on IV Zosyn during the hospital
course to which patient responded appropriately. At discharge colorectal surgeon recommended for patient to finish 5 days of oral antibiotic therapy and was provided Augmentin course. Patient was discharged home at this point with follow-up with
surgery in office
Important imaging findings :
None
Procedure findings :
None
Discharge Plan
-
Patient Disposition: Home (Routine Discharge)
Discharge Diagnosis/Procedures: Laparoscopic appendectomy for perforated appendix, acute on chronic appendicitis
Condition: Fair
Diet: Low Residue
Activity: No strenuous activity
Additional Activity: No lifting over 10lbs (gallon of milk)
Bathing Restrictions: OK to Shower
Wound Care: Allow glue to naturally fall off. Do not pick at incisions.
Instructions: Low-fiber diet
Referrals:
Iwona Chamberlain NP [Family Provider, General]
Dwight Otero MD [Active, ColoRectal] - in two weeks
Additional Discharge Medication Instructions: Tylenol or Ibuprofen as needed for pain. Maximum dose of Tylenol is 4,000mg in 24 hours. Maximum dose of Ibuprofen is 3,200mg in 24 hours.
Prescriptions:
New
ondansetron 4 mg tablet,disintegrating
4 mg PO Q8H PRN (Reason: nausea and vomiting) 4 Days Qty: 10 0RF
acetaminophen [Tylenol Extra Strength] 500 mg tablet
1,000 mg PO Q6H PRN (Reason: Pain) Qty: 30 0RF
amoxicillin-pot clavulanate 875-125 mg tablet
1 tab PO Q8H Qty: 15 0RF
Continued
Entyvio 300 mg Recon Soln
300 mg IV Q8W
Patient Comments:
Her doctor at [facility] is Michael Abreu. All pt can cofirm is the name of the drug and when it was last given.
Probiotic
1 tab PO DAILY
Discharge Orders:
Discharge Patient (As Directed); Ordered 08/12/25
Ordered By: Al Carrero
Discharge Date and Time
Print Language: UGANDAN
[2025-08-12] MEDS: TYLENOL 650 MG PO (15:10)
[2025-08-12 15:28] VITALS: BP 97/63
--- NOTE | 2025-08-12 17:29 | PTCARENOTE ---
Patient stating to this RN she tolerated low res dinner, feels okay to go home. This RN communicated with MD and surgery, DC order placed by MD and patient discharged home with no needs. IV removed by this RN, vitals taken within 4 hours by tech
stable. Patient dressed and gathered belongings in room with help of family. This RN reviewed DC instructions with patient and patient's family at bedside, all verbalized understanding. Patient taken down to 's car via staff escort and
wheelchair.
[2025-08-13 22:23] LABS: Calprotectin, Fecal 211 ug/g (<=49)
== END 2025-08-12 17:40 | disposition home or self-care (01) | DRG 398 ==
LOC: 2 NORTH 17:21
PROVIDERS: Physician Assistant; ADMITTING PHYSICIAN Internal Medicine; ATTENDING PHYSICIAN Hospitalist; CONSULT PHYSICIAN Internal Medicine Gastroenterology; CONSULT PHYSICIAN Surgery; EMERGENCY PHYSICIAN Emergency Medicine; FAMILY PHYSICIAN Nurse Practitioner Women's Health
PROC: 0DTJ4ZZ Resection of Appendix, Percutaneous Endoscopic Approach (ICD-10-PCS; 2025-08-10)
DX: K35.32 Acute appendicitis with perforation, localized peritonitis, and gangrene, without abscess (principal); K50.80 Crohn's disease of both small and large intestine without complications; Z87.19 Personal history of other diseases of the digestive system
CPT/HCPCS: 74177; 80048; 80053; 81003; 83605; 83690; 83993; 84703; 85025; 85027; 85610; 85730; 86850; 86900; 86901; 87045; 87046; 87070; 87075; 87077; 87186; 87205; 87324; 87427; 87449; 88304; 88341; 88342; 93005; 96361; 96365; 96375; 96376; 99285; Q9967